=== PATIENT | male | born 1965 | race Caucasian/White ===

== ENCOUNTER 2018-11-04 19:02 | Emergency (ER) | payer SELFPAY ==
[2018-11-04 19:45] LABS: #Eosinphils 0.1 thou/uL (0.0-0.7); #Lymphocytes 1.4 thou/uL (1.20-3.40); #Monocytes 0.7 thou/uL (0.11-0.59); #Neutrophils 11.2 thou/uL (1.40-6.50); %Basophils 0.1 % (0.0-1.0); %Eosinophils 0.5 % (0.0-10.0); %Lymphocytes 10.6 % (21.0-51.0); %Neutrophils 83.9 % (42.0-75.0); Hemoglobin 11.6 g/dL (14.0-18.0); Mean Corpuscular HGB CONC 31.6 g/dL (32.0-36.0); Mean Corpuscular Hemoglobin 25.7 pg (27.0-31.0); Mean Corpuscular Volume 81.4 fL (78.0-98.0); Mean Platelet Volume 6.3 fL (7.4-10.4); Platelet Count 368 thou/uL (130-400); RBC Distribution Width 14.9 % (11.5-14.5); Red Blood Cell (RBC) Count 4.52 mill/uL (4.70-6.10); White Blood Cell (WBC) Count 13.4 thou/uL (4.8-10.8)
[2018-11-04 20:09] LABS: ALT (SGPT) Less than 7 U/L (8-55); AST (SGOT) 9 U/L (5-34); Albumin 3.4 g/dL (3.5-5.0); Alkaline Phosphatase 74 U/L (40-150); Anion Gap 13 mmol/L (10-20); BUN (Urea Nitrogen) 14 mg/dL (8.4-25.7); Bilirubin, Total 0.3 mg/dL (0.2-1.2); Calc. Creatinine Clearance 0 mL/min (70-130); Calcium 8.6 mg/dL (7.8-10.44); Carbon Dioxide 28 mmol/L (22-29); Chloride 100 mmol/L (98-107); Estimated GFR-MDRD Greater than 90; Globulin 3.7 g/dL (2.4-3.5); Glucose 105 mg/dL (70-105); Potassium 3.7 mmol/L (3.5-5.1); Protein, Total 7.1 g/dL (6.0-8.3); Sodium 137 mmol/L (136-145)
[2018-11-04 21:04] LABS: Bilirubin Small (Negative); Blood, Urine Moderate (Negative); Clarity TURBID (Clear); Glucose, Urine (Dipstick) Negative (Negative); Leukocyte Large (Negative); Nitrite Negative (Negative); Protein, Urine (Dipstick) 100 mg/dL (Neg-Trace); Specific Gravity, Urine 1.025 (1.002-1.036)
[2018-11-04 21:06] LABS: Bacteria/HPF None Seen HPF (None Seen); Hyaline Casts/LPF 7-10 HYALINE CAST LPF (0-3 Hyaline); Pathc Cast-AUWi Flag 1.77 (0-2.49); RBC/HPF 21-50 HPF (0-3); Squamous Epithelial 0-3 HPF (0-3); Yeast-AUWi Flag 24.1 (0-25.0)
--- NOTE | 2018-11-04 22:13 | ULT ---
ULTRASOUND SCROTUM TESTICLES DOPPLER DUPLEX: DATE: 11/04/2018 TIME: 9:52 p.m. HISTORY: A 53-year-old male with right testicular pain and left scrotal swelling. TECHNIQUE: Brown-scale evaluation of intrascrotal contents. Color flow Doppler and spectral waveform analysis of the testicles. FINDINGS: RIGHT TESTICLE: 2.7 x 1.7 x 2.2 cm LEFT TESTICLE: 2.8 x 1.2 x 2.4 cm Bilateral testicular echogenicity is homogeneous, with no evidence of mass. There is hyperemia (increased blood flow) symmetrically, to both testicles. There is a moderate to large right hydrocele, containing multiple septations. There is a very large simple left hydrocele. There are peristalsing bowel loops within the left hydr ocele. Right epididymal head: 1.1 x 0.8 x 1.0 cm. Left epididymal head: 0.9 x 0.5 x 0.8 cm. IMPRESSION: 1. Left inguinal-scrotal hernia, containing bowel. 2. Very large left hydrocele. 3. Moderate to large right hydrocele, containing multiple septations. 4. Hyperemia of both testicles, suggestive of bilateral orchitis. ALONA Persaud POS: DELPHINE
[2018-11-04] MEDS ORDERED: HYDROcodone/Acetaminophen 10/325 mg Tablet ONE (22:18)
[2018-11-04] MEDS ORDERED: Diazepam 5 MG TAB ONE (22:57)
[2018-11-04] MEDS ORDERED: Ketorolac Tromethamine 30 MG/ML VIAL ONE (22:57)
[2018-11-04] MEDS ORDERED: cefTRIAXone\\ROCEPHIN 1 GM VIAL ONE (23:00)
[2018-11-04] MEDS ORDERED: Lidocaine 1% PF 5 ML VIAL ONE (23:00)
== END 2018-11-05 00:42 | disposition home or self-care (01) ==
LOC: ERS 19:02
DX: N45.2 Orchitis (principal); N41.9 Inflammatory disease of prostate, unspecified; K40.90 Unilateral inguinal hernia, without obstruction or gangrene, not specified as recurrent; F17.210 Nicotine dependence, cigarettes, uncomplicated
CPT/HCPCS: 36415; 76870; 80053; 81003; 81015; 85025; 87086; 93976; 96372; J0696; J1885; J2001

== ENCOUNTER 2020-03-02 06:36 | Outpatient (CLI) | payer OTHER ==
[2020-03-02 17:32] LABS: #Eosinphils 0.2 thou/uL (0.0-0.7); #Lymphocytes 1.8 thou/uL (1.20-3.40); #Monocytes 0.6 thou/uL (0.11-0.59); #Neutrophils 8.2 thou/uL (1.40-6.50); %Basophils 0.4 % (0.0-1.0); %Lymphocytes 16.6 % (21.0-51.0); %Monocytes 5.7 % (0.0-10.0); %Neutrophils 75.3 % (42.0-75.0); Hemoglobin 13.5 g/dL (14.0-18.0); Mean Corpuscular HGB CONC 31.6 g/dL (32.0-36.0); Mean Corpuscular Hemoglobin 28.8 pg (27.0-31.0); Mean Corpuscular Volume 91.2 fL (78.0-98.0); Mean Platelet Volume 7.9 fL (7.4-10.4); Platelet Count 274 thou/uL (130-400); RBC Distribution Width 14.1 % (11.5-14.5); Red Blood Cell (RBC) Count 4.69 mill/uL (4.70-6.10); White Blood Cell (WBC) Count 10.9 thou/uL (4.8-10.8)
[2020-03-02 17:44] LABS: Anion Gap 10 mmol/L (10-20); BUN (Urea Nitrogen) 14 mg/dL (8.4-25.7); Calc. Creatinine Clearance 0 mL/min (70-130); Calcium 8.7 mg/dL (7.8-10.44); Carbon Dioxide 30 mmol/L (22-29); Chloride 101 mmol/L (98-107); Estimated GFR-MDRD Greater than 90; Glucose 71 mg/dL (70-105); Potassium 3.9 mmol/L (3.5-5.1); Sodium 137 mmol/L (136-145)
--- NOTE | 2020-03-02 20:27 | EKG ---
Test Reason : Blood Pressure : / mmHG Vent. Rate : 072 BPM Atrial Rate : 072 BPM P-R Int : 138 ms QRS Dur : 102 ms QT Int : 398 ms P-R-T Axes : 025 068 016 degrees QTc Int : 435 ms Normal sinus rhythm Normal ECG When compared with ECG of 15-OCT-2013 07:33, Vent. rate has decreased BY 39 BPM Confirmed by DANE CONNELL, DR. Winston ([id number]) on 03/02/2020 8:27:03 PM Referred By: SHOSHANA Confirmed By:DR. Tish VELA MD
[2020-03-03 10:55] LABS: SARS-CoV-2 MS2 Positive; SARS-CoV-2 N Gene Negative; SARS-CoV-2 S Gene Negative; SARS-CoV-2 orf1ab Negative
== END 2020-03-02 06:37 | disposition home or self-care (01) ==
LOC: LABBT 06:36
PROVIDERS: ATTEND Surgery
DX: Z01.818 Encounter for other preprocedural examination (principal); Z11.59 Encounter for screening for other viral diseases; K40.90 Unilateral inguinal hernia, without obstruction or gangrene, not specified as recurrent
CPT/HCPCS: 80048; 85025; 87635; 93005; 93010; U0003

== ENCOUNTER 2020-07-22 12:01 | Emergency (ER) | payer SELFPAY ==
[2020-07-22 12:54] LABS: #Lymphocytes 0.8 thou/uL (1.20-3.40); #Neutrophils 15.5 thou/uL (1.40-6.50); %Eosinophils 0.3 % (0.0-10.0); %Lymphocytes 4.3 % (21.0-51.0); %Neutrophils 89.4 % (42.0-75.0); Hemoglobin 13.6 g/dL (14.0-18.0); Mean Corpuscular HGB CONC 31.7 g/dL (32.0-36.0); Mean Corpuscular Hemoglobin 28.5 pg (27.0-31.0); Mean Corpuscular Volume 89.9 fL (78.0-98.0); Mean Platelet Volume 6.9 fL (7.4-10.4); Platelet Count 319 thou/uL (130-400); RBC Distribution Width 12.7 % (11.5-14.5); Red Blood Cell (RBC) Count 4.76 mill/uL (4.70-6.10); White Blood Cell (WBC) Count 17.4 thou/uL (4.8-10.8)
[2020-07-22 13:07] LABS: Bacteria/HPF 4+ HPF (None Seen); Bilirubin Negative (Negative); Blood, Urine 2+ (Negative); Clarity Turbid (Clear); Glucose, Urine (Dipstick) Normal (Negative); Ketone, Urine Negative (Negative); Leukocyte 500 Leu/uL (Negative); Nitrite Negative (Negative); Protein, Urine (Dipstick) 70 mg/dL (Neg-Trace); RBC/HPF 21-50 HPF (0-3); Specific Gravity, Urine 1.031 (1.002-1.036); Squamous Epithelial 0-3 HPF (0-3); Urobilinogen Greater than 12 mg/dL (Less than 2); WBC/HPF Greater than 50 HPF (0-3)
[2020-07-22 13:22] LABS: ALT (SGPT) 10 U/L (8-55); AST (SGOT) 9 U/L (5-34); Albumin 3.4 g/dL (3.5-5.0); Alkaline Phosphatase 94 U/L (40-110); Anion Gap 13 mmol/L (10-20); BUN (Urea Nitrogen) 12 mg/dL (8.4-25.7); Bilirubin, Total 0.4 mg/dL (0.2-1.2); Calc. Creatinine Clearance 0 mL/min (70-130); Calcium 8.3 mg/dL (7.8-10.44); Carbon Dioxide 28 mmol/L (22-29); Chloride 97 mmol/L (98-107); Estimated GFR-MDRD Greater than 90; Globulin 3.5 g/dL (2.4-3.5); Glucose 116 mg/dL (70-105); Lipase 9 U/L (8-78); Potassium 3.3 mmol/L (3.5-5.1); Protein, Total 6.9 g/dL (6.0-8.3); Sodium 135 mmol/L (136-145)
[2020-07-22] MEDS ORDERED: cefTRIAXone\\ROCEPHIN 1 GM VIAL ONE (15:05)
[2020-07-22] MEDS ORDERED: Acetaminophen 500 MG TAB ONE (15:33)
== END 2020-07-22 15:33 | disposition home or self-care (01) ==
LOC: ERS 12:01
DX: N30.90 Cystitis, unspecified without hematuria (principal); I10 Essential (primary) hypertension; F17.210 Nicotine dependence, cigarettes, uncomplicated
CPT/HCPCS: 36415; 80053; 81003; 81015; 83605; 83690; 85025; 87040; 87149; 96361; 96365; J0696

== ENCOUNTER 2020-07-27 13:41 | Inpatient (IN) | payer OTHER, SELFPAY ==
[~2020-07-27 13:41] MED LIST: Heparin 1,000 UNITS/ML VIAL ONE; Iopamidol-370 76% 500 ML 1 ML ONE
[2020-07-27 14:10] LABS: #Basophils 0.1 thou/uL (0.0-0.2); #Eosinphils 0.1 thou/uL (0.0-0.7); #Lymphocytes 1.6 thou/uL (1.20-3.40); #Monocytes 0.5 thou/uL (0.11-0.59); #Neutrophils 8.7 thou/uL (1.40-6.50); %Basophils 0.5 % (0.0-1.0); %Eosinophils 1.1 % (0.0-10.0); %Lymphocytes 14.6 % (21.0-51.0); %Monocytes 4.5 % (0.0-10.0); %Neutrophils 79.2 % (42.0-75.0); Hemoglobin 13.1 g/dL (14.0-18.0); Mean Corpuscular HGB CONC 32.6 g/dL (32.0-36.0); Mean Corpuscular Hemoglobin 28.8 pg (27.0-31.0); Mean Corpuscular Volume 88.3 fL (78.0-98.0); Mean Platelet Volume 6.8 fL (7.4-10.4); Platelet Count 404 thou/uL (130-400); RBC Distribution Width 12.8 % (11.5-14.5); Red Blood Cell (RBC) Count 4.55 mill/uL (4.70-6.10); White Blood Cell (WBC) Count 10.9 thou/uL (4.8-10.8)
[2020-07-27] MEDS ORDERED: Vancomycin 1 GM/200 ML BAG ONE (14:12)
[2020-07-27] MEDS ORDERED: cefTRIAXone\\ROCEPHIN 2 GM VIAL ONE (14:12)
[2020-07-27 14:34] LABS: ALT (SGPT) 9 U/L (8-55); AST (SGOT) 14 U/L (5-34); Albumin 3.3 g/dL (3.5-5.0); Alkaline Phosphatase 80 U/L (40-110); Anion Gap 11 mmol/L (10-20); BUN (Urea Nitrogen) 13 mg/dL (8.4-25.7); Bilirubin, Total 0.2 mg/dL (0.2-1.2); CK (CPK) 29 U/L (30-200); Calc. Creatinine Clearance 0 mL/min (70-130); Calcium 8.4 mg/dL (7.8-10.44); Carbon Dioxide 30 mmol/L (22-29); Chloride 99 mmol/L (98-107); Estimated GFR-MDRD Greater than 90; Globulin 3.6 g/dL (2.4-3.5); Glucose 114 mg/dL (70-105); Lipase 19 U/L (8-78); Potassium 3.7 mmol/L (3.5-5.1); Protein, Total 6.9 g/dL (6.0-8.3); Sodium 136 mmol/L (136-145)
--- NOTE | 2020-07-27 14:49 | RAD ---
XR Chest 1 View Portable HISTORY: Fever COMPARISON: 10/15/2013 FINDINGS: The heart size is normal. The lungs are well expanded without focal areas of consolidation, pneumothorax or pleural effusions. IMPRESSION: No radiographic evidence of acute cardiopulmonary process.
[2020-07-27 15:13] LABS: Bilirubin Negative (Negative); Blood, Urine Large (Negative); Glucose, Urine (Dipstick) Negative (Negative); Ketone, Urine Trace mg/dL (Negative); Leukocyte Moderate (Negative); Nitrite Negative (Negative); Protein, Urine (Dipstick) 100 mg/dL (Neg-Trace); Specific Gravity, Urine 1.025 (1.005-1.030); pH, Urine 6.5 (5.0-9.0)
[2020-07-27 15:14] LABS: Clarity Opaque (Clear)
[2020-07-27 15:22] LABS: Bacteria/HPF 3+ HPF (None Seen); RBC/HPF 21-50 HPF (0-3); Squamous Epithelial 0-3 HPF (0-3); WBC/HPF Greater Than 50 HPF (0-3)
--- NOTE | 2020-07-27 15:38 | CT ---
CT Stone Protocol 07/27/2020 2:55 PM HISTORY: Urinary tract infection diagnosed one week ago. Symptoms not relieved by medication. Abdominal pain. COMPARISON: None. Technique: Multiple contiguous axial CT images are obtained through the abdomen and pelvis without IV contrast. Coronal reformats are provided. FINDINGS: This examination is limited for the evaluation of solid organs and vascular structures due to the lac k of intravenous contrast. Lower Chest: Reticulonodular densities and bronchiectasis is seen at each lung base with calcified pl eural-based plaque along the right hemidiaphragm. Calcified granuloma seen at the right lung base. These findings were also seen on a CT angiogram of the thorax on 10/15/2013 suggesting chronic inflam matory or infectious process. Liver: Grossly normal non-enhanced CT appearance. Gallbladder: Decompressed. Pancreas: Grossly normal nonenhanced CT appearance. Spleen: Grossly normal nonenhanced CT appearance. Adrenals: Grossly normal nonenhanced CT appearance. Kidneys, ureters, urinary bladder: A nonobstructing 2 mm calculus is seen in the midportion left kidn ey. No right renal calculus or ureteral calculi are seen bilaterally. There is no hydronephrosis. Urinary bladder is incompletely distended but grossly within normal limits. Lymph Nodes: No enlarged lymph nodes. Bowel: There is a focal area of circumferential wall thickening involving the most proximal rectum ne ar the rectosigmoid junction worrisome for neoplastic process. There is an irregular fluid and gas collection seen in the lower pelvis which appears to involve the prostate gland and also abuts the ri ght lateral aspect of the rectum. This collection measures approximately 5.1 cm transverse x 4.6 cm AP x 4.8 cm craniocaudal. This appears to involve the lower one half of the prostate gland and could represent an abscess involving the prostate gland. As noted above, this does abut the right lateral wall of the rectum. Fluid and gas collection arising from the colon is a possibility. However, given that this collection appears to involve the prostate gland, this is thought to more likely arise from the prostate gland and related to abscess. Appendix: The appendix is normal in caliber. Vessels: Vascular calcifications in the abdominal aorta and iliac arteries.. Abdominal Wall: Minimal subcutaneous edema. Bones: Multilevel degenerative changes in the lumbar spine with trace grade 1 anterolisthesis of L4 o n L5. IMPRESSION: 1. Circumferential wall thickening involving the proximal rectum worrisome for neoplastic process. Co lonoscopy is recommended for further evaluation. 2. Fluid and gas collection in the lower pelvis which involves the posterior aspect of the prostate g land and extends along the right aspect of the lower rectum. Findings are most likely related to abscess involving the prostate gland which extends posterolaterally on the right and abuts the rectum laterally on the right. Fluid and gas collection arising from the rectum with extension into the prostate gland is a possibility but is thought less likely colonoscopy is again recommended for furth er evaluation. Urology consultation is also suggested. 3. Reticulonodular densities and bronchiectasis at each lung base which were also seen on a CTA thora x in 2013 and likely related to chronic infectious or inflammatory process. 4. Nonobstructing left renal calculus. There is no hydronephrosis, and no ureteral calculus is seen. 5. Above findings discussed Dr. Phan in the emergency department on 07/27/2020 at 1531 hours.
--- NOTE | 2020-07-27 17:24 | CT ---
CT ABDOMEN WITH CONTRAST CT PELVIS WITH CONTRAST: DATE: 07/27/2020 HISTORY: 54-year-old male with urinary tract infection and prostate infection COMPARISON: None TECHNIQUE: IV injection of iodinated contrast media: administered. Oral contrast media:Not administered FINDINGS: There is an approximately 5.5 x 3 x 6 cm collection of gas and fluid within the prostate gland, with air-fluid level, consistent with abscess. This is associated with enlargement of the prostate which superiorly displaces the base of the urinary bladder. There is collection is inseparable from the right side of the rectum by a continuation of the fluid c ollection. Within this connection, there is an approximately 3 x 2.5 x 4.5 cm enhancing tumor mass which appears to be external to the rectum, but broadly abuts the right side of the rectum. More inferiorly, the lower rectum and anorectal junction appears diffusely thickened. More superiorly , there is circumferential mural thickening of the upper-mid rectum, suspicious for rectal cancer. There is fat stranding representing edema throughout the pelvic cavity, especially in the dependent l ower portions, and ischio rectal fossa bilaterally. Moderate to large volume of colonic stool throughout the rest of the colon. No small bowel dilation. There is somewhat poor IV contrast enhancement of all of the organs. No major pathology of kidneys, adrenals, abdominal aorta, pancreas, spleen. No flat broad coarse calcification at the right hemidiaphragmatic surface, consistent with calcified pleural plaque. Edema throughout the subcutaneous fat. Nonspecific tree-in-bud patchy nodularity at bases of bilateral lower lobes. High-grade lumbar spondy losis with multilevel degenerative disc disease and facet DJD. Grade 1 spondylolisthesis without spondylolysis at L4-5.. There is an approximately 2 cm faint ill-defined low-attenuation lesion in hepatic segment IVb of the left lobe near the junction with the right lobe, suspicious for a metastasis. IMPRESSION: 1) large intra prostate abscess. 2) this abscess communicates with 3 x 2.5 x 4.5 cm mass between the right side of the rectum and the right posterior aspect of the prostate abscess. This mass may represent a malignant neoplastic tumor. 3) more superiorly in the rectum, there is circumferential mural thickening suspicious for rectal can cer. 4) at the anorectal junction, there is diffuse soft tissue thickening. 5) suspicious for 2 cm liver metastasis in left lobe of liver.
[2020-07-27 17:49] VITALS: BMI 29.2
[2020-07-27] MEDS ORDERED: HYDROcodone/Acetaminophen 7.5/325 mg Tablet PO PRN (17:54)
[2020-07-27] MEDS ORDERED: Acetaminophen 325 MG TAB PO PRN (18:25)
[2020-07-27] MEDS ORDERED: Senokot S 8.6-50 MG TAB PO PRN (18:25)
[2020-07-27] MEDS ORDERED: Acetaminophen 650 MG Suppository PR PRN (18:25)
[2020-07-27] MEDS: Sodium Chloride 0.9% 1,000 ML IV SCH (18:25)
[2020-07-27 18:32] LABS: INR-International Normal Ratio 1.1; PTT 32.6 sec (22.9-36.1); Prothrombin Time 14.4 sec (12.0-14.7)
--- NOTE | 2020-07-27 19:02 | PDOC.HHP ---
Hospitalist HPI - History of Present Illness History of Present Illness: DATE OF ADMISSION: 07/27/2020 TIME OF ASSESSMENT: 1745 PRIMARY CARE PHYSICIAN: None CHIEF COMPLAINT: Episode of blood-tinged urine HPI: Patient presented to the emergency department with complaints of a recent UTI for which he received a 9-day course of antibiotics with nitrofurantoin. He states he had 1 day of dysuria and felt that improvement in discomfort meant the antibiotics were working up until today when he noted blood-tinged urine while he was at work. Denies having any associated discomfort. He was alarmed and therefore decided to come into the ER. Denies experiencing any abdominal or suprapubic discomfort. No changes in urinary output, frequency or hesitancy. Has not had any fevers chills or sweats. Denies any urinary difficulties or symptoms in the past. ROS: Patient states his appetite has been very good and he denies experiencing any nausea or vomiting. He has not noted any drastic changes with his weight. States that his bowel movements have been loose but denies any pain with bowel movements. Has not noted any dark-colored stools or bright red blood per rectum. He felt the loose stools was associated with the recent antibiotics. Denies any chest pain palpitations or shortness of breath. Reports a chronic dry cough associated with his heavy history of smoking. All other review of systems are negative. ED COURSE: In the ER he had an EKG done that showed sinus tachycardia with a heart rate of 144. No ST changes or T wave abnormalities. Blood pressure was normal at 127/78. Urinalysis was done showing opaque appearing urine with 100 of protein, trace ketones, large blood, 2.0 urobilinogen, moderate leukocyte esterase, 21-50 red blood cells, greater than 50 white blood cells, 3+ bacteria. He had a chest x-ray done that showed no radiographic evidence of acute cardiopulmonary process. Heart size was normal. Labs notable for a white count of 10.9, hemoglobin 13.1, hematocrit 40.2, platelet count 404, neutrophils 79.2%. BUN 13, creatinine 0.76, GFR greater than 90. Glucose 114. Lactic acid 2. LFTs unremarkable. Lipase normal. Troponin negative. CK 29. Albumin 3.3. CT of the abdomen and pelvis was done for suspected prostate infection and revealed a large intra-prostate abscess communicating with a 3 x 2.5 x 4.5 cm mass between the right side of the rectum and the right posterior aspect of the prostate abscess. This was felt to represent a malignant neoplastic tumor. Superiorly in the rectum there was a circumferential mural thickening suspicious for rectal cancer. Diffuse soft tissue thickening at the anorectal junction noted. Also present was a 2 cm liver lesion suspicious for metastasis located in the left lobe of the liver. He was started on IV antibiotics with vancomycin as well as Rocephin. He was started on IV fluids with normal saline. His case was reportedly discussed with urology as well as who is on- call for surgery. Case also discussed with GI. Patient being admitted for further work-up. PAST MEDICAL HISTORY: Tobacco abuse PAST SURGICAL HISTORY: Inguinal hernia repair Tonsillectomy SOCIAL HISTORY: Patient is fully independent. He lives with his . Reports smoking 2 packs a day for most of his life, per patient. Previously smoked 1- 1/2 packs/day but has been smoking 2 packs/day for the last 17 years. Denies any alcohol consumption or drug use. FAMILY HISTORY: His father is , diagnosed with brain cancer. ALLERGIES: No known drug allergies. CURRENT MEDICATIONS: Recently on nitrofurantoin 100 mg p.o. twice daily. - Exam General Appearance: NAD, awake alert General - other findings: VS: Temp 98.5, HR 76, RR 14, O2 sat 98% on room air, BP 155/83. Eye: PERRL, anicteric sclera ENT: normocephalic atraumatic Neck: supple, no lymphadenopathy Heart: RRR, normal peripheral pulses Respiratory: no wheezes, normal chest expansion, no tachypnea Respiratory - other findings: Coarse lung sounds, no crackles or wheezing Gastrointestinal: soft, non-tender, non-distended, no palpable masses, no guarding, no rigidity Extremities: no edema Skin: normal turgor, no lesions, no rashes Neurological: cranial nerve grossly intact, normal sensation to touch, no focal deficits Musculoskeletal: normal tone, normal strength, no muscle wasting Psychiatric: normal affect, normal behavior, A&O x 3 Hospitalist Results - Labs Result Diagrams: 07/27/20 13:57 07/27/20 13:57 Lab results: WBC 10.9 thou/uL (4.8-10.8) H 07/27/20 13:57 Hgb 13.1 g/dL (14.0-18.0) L 07/27/20 13:57 Hct 40.2 % (42.0-52.0) L 07/27/20 13:57 MCV 88.3 fL (78.0-98.0) 07/27/20 13:57 Plt Count 404 thou/uL (130-400) H 07/27/20 13:57 Neutrophils % 79.2 % (42.0-75.0) H 07/27/20 13:57 Sodium 136 mmol/L (136-145) 07/27/20 13:57 Potassium 3.7 mmol/L (3.5-5.1) 07/27/20 13:57 Chloride 99 mmol/L (98-107) 07/27/20 13:57 Carbon Dioxide 30 mmol/L (22-29) H 07/27/20 13:57 BUN 13 mg/dL (8.4-25.7) 07/27/20 13:57 Creatinine 0.76 mg/dL (0.7-1.3) 07/27/20 13:57 Glucose 114 mg/dL (70-105) H 07/27/20 13:57 Lactic Acid 2.0 mmol/L (0.5-2.2) 07/27/20 14:28 Calcium 8.4 mg/dL (7.8-10.44) 07/27/20 13:57 Total Bilirubin 0.2 mg/dL (0.2-1.2) 07/27/20 13:57 AST 14 U/L (5-34) 07/27/20 13:57 ALT 9 U/L (8-55) 07/27/20 13:57 Alkaline Phosphatase 80 U/L (40-110) 07/27/20 13:57 Creatine Kinase 29 U/L (30-200) L 07/27/20 13:57 Troponin I Less than 0.010 ng/mL (< 0.028) 07/27/20 13:57 Serum Total Protein 6.9 g/dL (6.0-8.3) 07/27/20 13:57 Albumin 3.3 g/dL (3.5-5.0) L 07/27/20 13:57 Lipase 19 U/L (8-78) 07/27/20 13:57 Urine Ketones Trace mg/dL (Negative) A 07/27/20 14:50 Urine Blood Large (Negative) A 07/27/20 14:50 Urine Nitrite Negative (Negative) 07/27/20 14:50 Ur Leukocyte Esterase Moderate (Negative) H 07/27/20 14:50 Urine RBC 21-50 HPF (0-3) A 07/27/20 14:50 Urine WBC Greater Than 50 HPF (0-3) A 07/27/20 14:50 Ur Squamous Epith Cells 0-3 HPF (0-3) 07/27/20 14:50 Urine Bacteria 3+ HPF (None Seen) A 07/27/20 14:50 Hospitalist H&P A/P - Problem (1) Hematuria Code(s): R31.9 - HEMATURIA, UNSPECIFIED Status: Acute Assessment and Plan: Has resolved per patient. Continue to monitor closely for development of anisha hematuria. (2) Abscess of prostate Code(s): N41.2 - ABSCESS OF PROSTATE Status: Acute Assessment and Plan: Continue IV antibiotics. Urology recommendations appreciated. UCx pending. Continue IV fluids. (3) Mass in rectum Code(s): K62.89 - OTHER SPECIFIED DISEASES OF ANUS AND RECTUM Status: Acute Assessment and Plan: Possible rectal cancer as well as possible liver mets as per CT findings. GI has been consulted. Will check CEA and PSA. Coags added-on for the AM. Keep NPO after midnight. Continue IV fluids. Check BNP in the AM. (4) Tobacco abuse disorder Code(s): Z72.0 - TOBACCO USE Status: Chronic Assessment and Plan: Long-standing heavy smoking history. Tobacco cessation counseling. Patient refusing nicotine patch at present. Coarse lung sounds on exam but no known diagnosis of COPD. Monitor O2 sats. Would benefit from PFTs, especially if undergoing any major procedures. - Plan Plan: GI Prophylaxis with Famotidine 20 mg PO BID. DVT Prophylaxis: Mechanical SCDs only. No pharmacoprophylaxis given recent hematuria and posisble procedures. Patient is ambulatory. FULL CODE STATUS. Surrogate decision maker is his : Lakesha Dixon. Case discussed with Dr. Hutchins who agrees with plan as above.
[2020-07-27 19:23] LABS: HIV (1/2) Antibody/Antigen Non-Reactive (NonReactive); HIV 1/2 INDEX 0.11 S/CO (<1.00); Hep A IgM AB Non-Reactive (NonReactive); Hep A IgM S/CO 0.42 S/CO (0-0.79); Hep B Surf Ag Non-Reactive S/CO (NonReactive); Hep C IgG Ab Non-Reactive (NonReactive); Hep C Index 0.08 S/CO (0-0.79); Hepatitis B Core IgM Abs Non-Reactive (NonReactive)
[2020-07-27] MEDS: Famotidine 20 MG TAB PO SCH (20:20)
[2020-07-27] MEDS: Vancomycin HCl 1.75 GM in Sodium Chloride 0.9% 500 ML IVPB SCH (20:30)
[2020-07-27] MEDS ORDERED: Vancomycin 1 GM in Premix Bag 1 BAG IVPB SCH (21:00)
[2020-07-27] MEDS ORDERED: metroNIDAZOLE 250 MG in Admixture Fee 2 EACH IVPB SCH (22:00)
[2020-07-27] MEDS ORDERED: metroNIDAZOLE 500 MG in Premix Bag 1 BAG IVPB SCH (22:00)
[2020-07-27] MEDS: Piperacillin/Tazobactam 3.375 GM in Sodium Chloride 0.9% 100 ML IVPB SCH (23:43)
--- NOTE | 2020-07-28 00:01 | CON ---
DATE OF CONSULTATION: 07/27/2020 REASON FOR CONSULT: Perirectal prostate abscess, rectal mass concerning for rectal carcinoma. HISTORY OF PRESENT ILLNESS: Mr. aSnchez is a pleasant 54-year-old male, who has a history of inguinal hernia, status post repair by Dr. Nevarez in February of 2020. He tolerated this uneventfully. He has been trying to lose weight for the last few years and has lost over 200 pounds over the last year too with an active diet. He presented to the emergency room on July 22, he presented with symptoms of UTI, low-grade fever and provided Macrobid as an outpatient. He was given Rocephin in the emergency room. He states that due to persistent dysuria, he presented to the emergency room back. CT was obtained by the emergency room staff, demonstrating abnormality of the rectal region, perirectal abscess, and prostatic abscess. He has no significant white count or bandemia of concern. Normal renal function and his vital signs are stable. He appears quite comfortable. However, he is admitted as he has presenting issues of concern with occult malignancy, perirectal prostatic abscess. He has a strong history of tobacco abuse since his late teens and early 20s, has a significant other at bedside. 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 He denies prior history of urinary retention. He states that he may have had vague prostatitis symptoms maybe a year or 2 ago, resolved with antibiotic therapy. He denies obstructive urinary symptoms, however, relates that occasional passage of pustular fluid per his urethra over the last few days and feels that his urinary flow was adequate and has mild dysuria. PAST MEDICAL HISTORY: Includes hepatitis A as a child, left inguinal hernia, hypertension. PAST SURGICAL HISTORY: Includes tonsillectomy as a child, left inguinal hernia repair with mesh on March 05, 2020. FAMILY HISTORY: Positive for unknown malignancy per patient. HOME MEDICATIONS: Include tramadol and Macrobid, which he has one dose left. SOCIAL HISTORY: He is a smoker, 1 pack per day since his late teens or early 20s. ALLERGIES: NO KNOWN DRUG ALLERGIES. HIS RECENT COVID TESTING FROM INGUINAL HERNIA REPAIR IS NEGATIVE AND HE DENIES CHEST PAIN, SHORTNESS OF BREATH, SIGNIFICANT FATIGUE. REVIEW OF SYSTEMS: A 10-point review of systems as above, otherwise noncontributory. PHYSICAL EXAMINATION: VITAL SIGNS: Stable. He is afebrile and there is no evidence of hemodynamic compromise or no significant tachycardia of concern. GENERAL: The patient appears to be in no acute distress. He provides his own history. Significant other at bedside. HEENT: Grossly unremarkable. HEART: Regular rate. LUNGS: Clear. ABDOMEN: Demonstrates no rigidity, no rebound, no CVA tenderness. No suprapubic tenderness of concern. EXTREMITIES: No cyanosis, clubbing, or edema. No calf tenderness. MUSCULOSKELETAL: Appears to be symmetric and intact muscle strength. NEUROLOGIC: No gross focal deficits. SKIN: No obvious rashes or lesion of concern. : Demonstrates circumcised phallus. Meatus is grossly unremarkable. Testes are descended with no evidence of intratesticular mass. There is a left inguinal hernia incision consistent with previous surgery. Perineum is inspected demonstrating no gross fluctuance, erythema or crepitus of concern. Gentle digital rectal exam was performed demonstrating no significant fluctuance per se. However, there is gross irregularity, hardness in his rectal vault consistent with occult malignancy. I did gently pass a 16-Kenyan Ortiz catheter, this passed without significant issues and clear yellow urine is obtained without significant issues of 120 mL of urine obtained and this was secured to gravity leg bag. PERTINENT LABS AND IMAGING: White count 10, hemoglobin 13, platelets 404. Creatinine 0.7. Lactic acid is normal. UA on arrival demonstrates 100 protein, moderate leukocytes, greater than 50 wbc's, 21 to 50 rbc's, no epithelials, 3+ bacteria. COVID-19 is negative on March 02, 2020. Creatinine 0.76. Liver enzymes are grossly unremarkable, however, he does have a mildly low albumin of 3.3. White count 10.9, hemoglobin of 13, platelets of 404, 93 segs. No significant bandemia noted. Blood culture, July 22, demonstrates coag-negative staph, 1/2 blood cultures positive. On November 04, 2018, urine culture is negative, mixed skin honorio. Urine culture, October 25, 2018, demonstrates Streptococcus 10 to 25,000. Scrotal ultrasound on October 2018 demonstrates left inguinal scrotal hernia containing bowel content, possible orchitis as there is hyperemia. CT of the abdomen and pelvis stone protocol dated July 27, 2020, which I reviewed myself. 1. Circumferential wall thickening involving the proximal rectum, worrisome for malignancy. 2. Fluid and gas collection in the lower pelvis involving the posterior aspect of the prostate extending into the right aspect of the lower rectum and likely related to abscess involving the prostate extending posterolaterally to the right and abutting the rectum laterally. Fluid and gas collection arising from the rectum with extension into the prostate gland is also a possibility. Bronchiectasis of the lung. Nonobstructing left punctate renal lithiasis with no evidence of hydronephrosis bilaterally. CT of the abdomen and pelvis with IV contrast obtained on same day demonstrates 5.5 x 3 x 6 cm gas and fluid collection within the prostate, consistent with abscess. There is a collection of inseparable fluid on the right side of the rectum by continuation of fluid collection. Within this connection, a 3 x 2.5 x 4.5 cm enhancing tumor mass appears to be external to the rectum abutting the right side of the rectum. Diffusely thickened anorectal junction suspicious for rectal cancer. Suspicious 2 cm liver metastasis, left lower lobe. IMPRESSION: 1. Mr. Sanchez is a pleasant 54-year-old male, who presents with CT findings of rectal mass, prostatic abscess, perirectal abscess dimensions as above. 2. Nonobstructing punctate left renal lithiasis. RECOMMENDATIONS: I have discussed Mr. Sanchez's case with General Surgery, Dr. Peres, and his primary general surgeon, Dr. Nevarez. He remains hemodynamically stable and this is likely the result of rectal cancer resulting in abscess, or concomitant prostate infection and prostatic abscess. Possibility of both entities being present is also differential diagnosis, or necrotic mass resulting in prostatic abscess. Nevertheless, the patient is not in significant urinary retention, I had a long discussion with the patient at bedside regarding indications of exam under anesthesia, cystoscopy, transurethral unroofing of prostatic abscess, possible needle aspiration if conducive, suprapubic tube for urinary diversion. Digital rectal exam demonstrates infiltrating rectal mass concerning for rectal carcinoma on CT demonstrating metastatic disease. The patient is n.p.o. after midnight, the above procedure scheduled for tomorrow with concomitant GI assessment while under anesthesia for flex sig. Case discussed with Dr. Boateng as well. Significant time spent with the patient and coordinating care with multiple subspecialists. N.p.o. after midnight. Job ID: [id number] [facility]
--- NOTE | 2020-07-28 00:13 | CON ---
DATE OF CONSULTATION: 07/27/2020 REQUESTING PHYSICIAN: Dr. Peres. REASON FOR CONSULTATION: Rectal mass on CT. HISTORY OF PRESENT ILLNESS: Long Sanchez is a 54-year-old man, who normally takes no medications. He has a history of prostatitis, treated with extended oral antibiotic therapy a couple of years ago per his recollection, which had resolved completely. He has never undergone colonoscopy and has no family history of GI malignancy. About a week ago, he presented with pyuria and was diagnosed with urinary tract infection. He has been taking nitrofurantoin for the past six days. However, he has not had any improvement in his symptoms, the appearance of pyuria, some mild dysuria and then today had some anisha blood in his urine as well. He denies any fever. He is really not having any abdominal pain with this. He does say that his bowel movements may be a bit smaller caliber than before progressively over the past few months, but he really did not think much of this. There is no melena or hematochezia. His weight has been stable over the past year, but upon presentation to the emergency department today, urinalysis again was highly suggestive of urinary infection and a CT of the abdomen and pelvis demonstrates what appears to be a prostatic abscess measuring 5.1 cm, abutting the right lateral rectum and there is also circumferential thickening of the proximal rectum near the rectosigmoid junction, which is worrisome for possible neoplasm. The patient currently has no other complaints. He does smoke two packs of cigarettes per day. Dr. Washington of Urology has evaluated the patient and is planning on urologic procedure for abscess drainage tomorrow. We are consulted for consideration of endoscopic examination of the rectal mass, potentially under the same anesthesia. REVIEW OF SYSTEMS: Full review of systems including constitutional, head, eyes, ears, nose, throat, GI, , cardiovascular, respiratory, musculoskeletal, neurologic systems is negative except as noted in the HPI. PAST MEDICAL HISTORY: 1. Prostatitis, treated with antibiotics a few years ago. 2. Hernia repair. 3. Tobacco abuse. ALLERGIES: NO KNOWN DRUG ALLERGIES. OUTPATIENT MEDICATIONS: Nitrofurantoin p.o. for the past 6 days. SOCIAL HISTORY: The patient smokes two packs of cigarettes per day. He quit drinking alcohol about 14 years ago. No drug use. FAMILY HISTORY: Negative for GI malignancy. PHYSICAL EXAMINATION: VITAL SIGNS: Temperature 98.5, pulse 76, blood pressure 155/83, oxygen saturation 98% on room air. GENERAL: A 54-year-old man, lying in bed comfortably, in no distress. SKIN: No jaundice. No rashes were palpable. EYES: No scleral icterus. Extraocular movements intact ENT: Mucous membranes moist. No oral lesions. LYMPH: No submandibular or supraclavicular lymphadenopathy. THYROID: Nontender to palpation. HEART: Regular rate and rhythm. LUNGS: Clear to auscultation bilaterally. ABDOMEN: Bowel sounds present. Soft and nontender to palpation throughout. EXTREMITIES: No peripheral edema. VESSELS: Radial pulses 2+ bilaterally. NEUROLOGICAL: Cranial nerves 2 through 12 intact bilaterally. No focal deficits. RECTAL: Deferred this evening. LABORATORY STUDIES: WBC 10.9, hemoglobin 13.1, platelets 404. Sodium 136, potassium 3.7, BUN 13, creatinine 0.76. LFTs all normal with total bilirubin 0.2, alkaline phosphatase 80, AST 14, ALT 9, albumin 3.3. Lactic acid only 2.0. Troponin negative. Lipase 19. CK 29. Urinalysis shows greater than 50 WBCs, 21-50 RBCs, 3+ bacteria. Urine culture is pending. Blood culture pending. COVID PCR pending. Hepatitis acute panel and HIV, CEA, PSA and INR also pending. IMAGING STUDIES: CT of the abdomen and pelvis demonstrates circumferential thickening in the proximal rectum worrisome for neoplastic process. There is a prostatic abscess measuring 5.1 cm, abutting the right lateral rectum. Chest x-ray shows no acute processes. ASSESSMENT/PLAN: 1. Rectal mass, highly suspected based on CT appearance showing circumferential proximal rectal thickening. 2. Prostatic abscess. I had a long discussion with the patient regarding the CT findings. This rectal thickening on CT is worrisome for potential neoplastic process. If present, it may be an underlying cause of this recurrent prostatitis with abscess. Alternatively, I suppose this could represent local inflammatory process from the prostatic abscess itself rather than neoplasm. Endoscopic investigation is certainly warranted. I have discussed the case with Dr. Washington. She has requested that we not administer bowel perforation for full colonoscopy, as this would be more likely to interfere with what she needs to do tomorrow. So, we are going to plan for unprepped flexible sigmoidoscopy tomorrow under the same anesthesia, we will likely be able to get a good enough examination of the area in question. The patient would then need a full colonoscopy at some point in the future, depending on findings. The patient understands and agrees with the plan. Thank you for the consultation. Please call anytime with questions or concerns. Job ID: [id number]
[2020-07-28 05:51] LABS: PTT 32.6 sec (22.9-36.1); Prothrombin Time 13.9 sec (12.0-14.7)
[2020-07-28] MEDS: Piperacillin/Tazobactam 3.375 GM in Sodium Chloride 0.9% 100 ML IVPB SCH ×4 (05:53→23:39)
[2020-07-28] MEDS: Sodium Chloride 0.9% 1,000 ML IV SCH ×3 (05:53→18:50)
[2020-07-28 05:54] LABS: #Eosinphils 0.2 thou/uL (0.0-0.7); #Lymphocytes 1.1 thou/uL (1.20-3.40); #Monocytes 0.6 thou/uL (0.11-0.59); #Neutrophils 10.1 thou/uL (1.40-6.50); %Basophils 0.2 % (0.0-1.0); %Eosinophils 1.4 % (0.0-10.0); %Monocytes 5.4 % (0.0-10.0); %Neutrophils 84.1 % (42.0-75.0); Hemoglobin 11.6 g/dL (14.0-18.0); Mean Corpuscular HGB CONC 32.2 g/dL (32.0-36.0); Mean Corpuscular Hemoglobin 28.7 pg (27.0-31.0); Mean Corpuscular Volume 88.9 fL (78.0-98.0); Mean Platelet Volume 7.2 fL (7.4-10.4); Platelet Count 319 thou/uL (130-400); Red Blood Cell (RBC) Count 4.04 mill/uL (4.70-6.10)
[2020-07-28 06:03] LABS: Anion Gap 10 mmol/L (10-20); BUN (Urea Nitrogen) 9 mg/dL (8.4-25.7); Calc. Creatinine Clearance 159 mL/min (70-130); Calcium 7.7 mg/dL (7.8-10.44); Carbon Dioxide 27 mmol/L (22-29); Chloride 104 mmol/L (98-107); Estimated GFR-MDRD Greater than 90; Glucose 92 mg/dL (70-105); Potassium 4.4 mmol/L (3.5-5.1); Sodium 137 mmol/L (136-145)
[2020-07-28] MEDS: Vancomycin HCl 1.75 GM in Sodium Chloride 0.9% 500 ML IVPB SCH (08:35)
[2020-07-28] MEDS: Famotidine 20 MG TAB PO SCH ×2 (08:35→20:20)
[2020-07-28] MEDS ORDERED: Iopamidol 370 76% 100 ML VIAL ONE (08:49)
[2020-07-28] MEDS ORDERED: Iopamidol 370 76% 50 ML VIAL FS ONE (08:49)
[2020-07-28] MEDS ORDERED: Rocuronium Bromide 10 MG/ML (10ML VIAL) ONE (09:26)
[2020-07-28] MEDS ORDERED: PROPOFOL 200 MG/20 ML VIAL ONE (09:26)
[2020-07-28] MEDS ORDERED: Lidocaine 1% PF 5 ML VIAL ONE (09:26)
[2020-07-28] MEDS ORDERED: Glycopyrrolate 0.2 MG/ML 5 ML SYRINGE ONE (09:26)
[2020-07-28] MEDS ORDERED: Ondansetron PF 4 MG/2 ML Vial ONE (09:26)
[2020-07-28] MEDS ORDERED: Dexamethasone 20 MG/5 ML VIAL ONE (09:26)
[2020-07-28] MEDS ORDERED: Piperacillin/Tazobactam 3.375 GM VIAL ONE (10:21)
[2020-07-28] MEDS ORDERED: Sodium Chloride 0.9% 100 ML ONE (10:21)
[2020-07-28] MEDS ORDERED: Midazolam HCl 2 mg/2 ml Vial ONE (10:22)
[2020-07-28] MEDS ORDERED: Fentanyl 100 MCG/2 ML VIAL ONE ×2 (10:22→12:47)
[2020-07-28 11:59] LABS: SARS-CoV-2 MS2 Positive; SARS-CoV-2 N Gene Negative; SARS-CoV-2 S Gene Negative; SARS-CoV-2 by NAA Not Detected (NotDetected); SARS-CoV-2 orf1ab Negative
--- NOTE | 2020-07-28 13:05 | PDOC.HOSPP ---
- Subjective Encounter Date: 07/28/20 Encounter Time: 08:20 Subjective: no sob or palp at bedside no nausea or abd pain - Objective Vital Signs & Weight: Vital Signs (12 hours) Temp Pulse Resp BP Pulse Ox 07/28/20 08:00 98.5 F 74 15 158/79 H 98 07/28/20 07:19 98.5 F 74 20 158/79 H 98 07/28/20 04:00 98.6 F 78 18 155/84 H 97 Weight Weight 197 lb 15.954 oz I&O: 07/27/20 07/28/20 07/29/20 06:59 06:59 06:59 Intake Total 600 Output Total 1900 Balance -1300 Result Diagrams: 07/28/20 05:06 07/28/20 05:06 Hospitalist ROS - Medication Medications: Active Medications Generic Name Dose Route Start Last Admin Trade Name Freq PRN Reason Stop Dose Admin Famotidine 20 mg 07/27/20 21:00 07/28/20 08:35 Famotidine 20 Mg Tab PO Not Given BID KEVEN Sodium Chloride 1,000 mls @ 125 mls/hr 07/27/20 18:00 07/28/20 09:11 Normal Saline 0.9% IV Not Given .Q8H KEVEN Vancomycin HCl 1.75 gm/ Sodium 500 mls @ 250 mls/hr 07/27/20 21:00 07/28/20 08:35 Chloride IVPB 500 mls Q12HR KEVEN Administration Piperacillin Sod/Tazobactam 100 mls @ 200 mls/hr 07/27/20 23:59 07/28/20 05 :53 Sod 3.375 gm/ Sodium Chloride IVPB 100 mls Q6HR KEVEN Administration - Exam General Appearance: awake alert Eye: PERRL, anicteric sclera ENT: no oropharyngeal lesions, dry oral mucosa Neck: supple, no JVD Heart: RRR, no murmur, no gallops Respiratory: no wheezes, no rales, rhonchi Gastrointestinal: soft, non-tender, non-distended, normal bowel sounds, no guarding, no rigidity Extremities: no cyanosis, no edema Neurological: cranial nerve grossly intact, no focal deficits Psychiatric: normal affect, A&O x 3 Hosp A/P (1) Abscess of prostate Code(s): N41.2 - ABSCESS OF PROSTATE Status: Acute (2) Hematuria Code(s): R31.9 - HEMATURIA, UNSPECIFIED Status: Acute (3) Mass in rectum Code(s): K62.89 - OTHER SPECIFIED DISEASES OF ANUS AND RECTUM Status: Acute (4) Tobacco abuse disorder Code(s): Z72.0 - TOBACCO USE Status: Chronic - Plan has suspected rectal mass with prostate abscess/spread plus 2 cm liver mass in left lobe hemostable is going for spc+ and rectosigmoidoscopy this am with biopsies continue current meds, zosyn, vanc and iv fluids
--- NOTE | 2020-07-28 14:15 | CT ---
CT abdomen with and without contrast CT pelvis with and without contrast: 07/28/2020 HISTORY: 54-year-old male with rectal mass and laya-prosthetic abscess. Status post suprapubic catheter placement by urologist. Status post TURP by urologist. Concern for bowel perforation. Findings discussed immediately after the scan with Dr. Washington. COMPARISON: 07/27/2020 FINDINGS: Again noted is the gas and fluid collection in the region of the prostate. According to the urologist , this is not within the prostate gland, but instead is posterior to the prostate gland. The prostate gland is reportedly very small in size. Again noted is the mass contiguous with the right side of this abscess and contiguous with the right side of the rectum. There is a new Ortiz catheter with balloon in the collapsed urinary bladder. There is a new suprapubic catheter with balloon in the collapsed urinary bladder also. Postcontrast images demonstrate a small amount of excreted contrast material from the ureters, in the urinary bladder lumen. There is a new finding of a large amount of serous density (10 Hounsfield units and lower) throughout much of the pelvic and abdominal cavities, including extraperitoneal anterior pelvic cavity anterior to the urinary bladder, bilateral retroperitoneal fluid, left much greater than right, which reaches the left perisplenic region and left anterior and posterior pararenal spaces, and bilateral paracolic gutters. There is fluid is also present in the subcutaneous fat broadly abutting the anterior surface of the l ower abdominal wall. There is a large amount of extraluminal gas within the abdominal cavity, posterior to the lower porti ons of the bilateral rectus abdominis muscles, tracking more superiorly into the anterior portion of the left upper quadrant peritoneal cavity, to the level of the iliac wing. The suprapubic catheter is close to the redundant loop of sigmoid colon. It is doubtful that there trinh s been perforation of that sigmoid colon, although that cannot be completely excluded. Again noted is a small focal faint ill-defined lesion suspicious for metastasis, in the liver. No major pathology of kidneys, pancreas, adrenals, or spleen. No small bowel dilation. IMPRESSION: 1.) New finding of large amount of fluid within the pelvic cavity and abdominal cavity, mostly retrop eritoneal, but some intraperitoneal. The density of the fluid is consistent with irrigation fluid. Some of this has also travel through the midline defect in the lower abdominal wall from the suprapub ic catheter, and dissected into the subcutaneous fat. 2) suprapubic catheter and Ortiz catheter. 3) other findings as described in detail on 07/27/2020 CT report.
[2020-07-28] MEDS ORDERED: Oxybutynin 5 MG TAB PO PRN (14:16)
--- NOTE | 2020-07-28 14:22 | CT ---
CT pelvis with contrast: (CT cystogram) 07/28/2020 HISTORY: Rectal cancer and laya-prostatic abscess. Status post TURP and suprapubic catheter placement. TECHNIQUE: 20 mL of dilute water-soluble contrast infused into the suprapubic catheter. Scan through pelvis with coronal and sagittal reconstructions. Dr. Watkins discussed the findings with Dr. Washington immediately after the scan. FINDINGS: The urinary bladder lumen is filled and distended with contrast material, outlining the balloons of t he suprapubic catheter and Ortiz catheter. There is a moderate knee large amount of extravasated contrast material anterior to the urinary bladd er, between the anterior wall of the bladder and the lower rectus abdominis muscle. The abscess collection posterior to the posterior urethra, also almost fills completely with the extr avasated contrast material, and this contrast extends into the right posterior lateral component of the collection that extends towards the rectum. Contrast has not reached the lumen of the rectum. IMPRESSION: 1.) Extravasation consistent with Communication via small channels (not visible on CT) between the po sterior urethra and the post prostate collection. 2) extravasation along path of suprapubic catheter anterior to the urinary bladder.
[2020-07-28 14:48] LABS: #Basophils 0.2 thou/uL (0.0-0.2); #Lymphocytes 0.3 thou/uL (1.20-3.40); #Monocytes 0.1 thou/uL (0.11-0.59); #Neutrophils 11.7 thou/uL (1.40-6.50); %Basophils 1.4 % (0.0-1.0); %Eosinophils 0.4 % (0.0-10.0); %Lymphocytes 2.1 % (21.0-51.0); %Monocytes 0.6 % (0.0-10.0); %Neutrophils 95.5 % (42.0-75.0); Hemoglobin 11.8 g/dL (14.0-18.0); Mean Corpuscular HGB CONC 31.8 g/dL (32.0-36.0); Mean Corpuscular Hemoglobin 28.4 pg (27.0-31.0); Mean Corpuscular Volume 89.4 fL (78.0-98.0); Mean Platelet Volume 6.5 fL (7.4-10.4); Platelet Count 362 thou/uL (130-400); RBC Distribution Width 13.1 % (11.5-14.5); Red Blood Cell (RBC) Count 4.16 mill/uL (4.70-6.10); White Blood Cell (WBC) Count 12.2 thou/uL (4.8-10.8)
--- NOTE | 2020-07-28 15:43 | CON ---
DATE OF CONSULTATION: REASON FOR CONSULTATION: Suspected rectal cancer. HISTORY OF PRESENT ILLNESS: Mr. Sanchez is a 54-year-old man who I know from previous visits. I have seen him in my clinic in the past for a large symptomatic inguinal hernia for which he underwent repair earlier this year. He had not had a previous colonoscopy, and I had recommended this, but he did not want to do this immediately and wanted to proceed with hernia repair. First, he was unable to work due to his large hernia. He has done well from the hernia itself, but came back to the hospital because he had been on antibiotics for a urinary tract infection for 9 days and was not having any improvement in symptoms. Yesterday, he noticed a pink tinge to his urine and became concerned, so into the emergency room. He underwent a CT scan of the abdomen and pelvis, which showed a large fluid and gas collection, prostatic abscess as well as circumferential thickening of the rectum concerning for rectal mass. A repeat CT with contrast was performed and this did not seem to indicate a connection between the mass and the prostatic fluid collection concerning for rectal cancer prostatic area. Dr. Washington took him to the operating room this morning for exam under anesthesia, TURP. On transrectal, possible aspiration of the prostatic abscess and suprapubic tube placement. He also underwent flexible sigmoidoscopy by Dr. Viera with multiple biopsies of the rectum taken. The patient did have some swelling in the suprapubic area after placement of the suprapubic tube. A repeat CT scan was performed, which showed a large fluid collection and contrast extravasation from the bladder. The extraperitoneal space in the suprapubic and left lateral area as well as some contrast extravasation from the area of the prostate resection into the perirectal tissues. These two collections do not appear to be contiguous. The patient has not had any signs of sepsis. He has not been febrile, his white count was not elevated. He was not having fevers or chills, and he was not even having any significant pelvic pain, just dysuria and hematuria. He has had significant weight loss over the past 2 years, but this has been intentional. He has been on a low carb diet and really focusing on getting his weight under control and over the period about 2 years, has lost approximately 200 pounds. He had had some diarrhea recently, but thought this was related to the hernia. He had not had any rectal bleeding or melena. PAST MEDICAL HISTORY: Tobacco abuse. No history of cardiac or pulmonary disease. No family history of GI malignancy. PAST SURGICAL HISTORY: Inguinal hernia repair on the left and flexible sigmoidoscopy, TURP, transrectal aspiration of prostate abscess, and suprapubic tube placement today. SOCIAL HISTORY: The patient is a long-time smoker. Does not drink or use any illicit drugs. He was accompanied by his common-law that he has been with for over a decade. FAMILY HISTORY: He does have a family history of brain cancer in his father. ALLERGIES: HE HAS NO KNOWN DRUG ALLERGIES. OUTPATIENT MEDICATIONS: Nitrofurantoin for UTI. PHYSICAL EXAMINATION: Performed this morning, VITAL SIGNS: The patient was afebrile with normal heart rate, respirations, and room air sats. Blood pressure was slightly elevated at 158/79. GENERAL: Reveals a healthy-appearing man, in no acute distress. HEENT: Unremarkable except for poor dentition. Pupils are equal with normal extraocular movements. NECK: Supple without lymphadenopathy or thyroid nodules. HEART: Regular in its rate and rhythm without murmurs, rubs, or gallops. LUNGS: Clear to auscultation bilaterally. ABDOMEN: Soft, nontender, nondistended. EXTREMITIES: Warm, well perfused without edema. NEUROLOGIC: No focal deficits. PSYCHIATRIC: Alert, oriented, and appropriate. His full rectal examination was performed in the cystoscopy suite while the patient was under anesthesia. He has a large circumferentially ulcerated rectal mass which abuts the anal sphincters, but does not appear to directly involved them. This extends for the length of the examining finger, and I was unable to palpate normal rectum beyond the mass. The mass did allow passage of a finger, but appeared somewhat narrow. LABORATORY DATA: White count is only slightly elevated at 10.9 with a slight left shift, hematocrit of 40, and platelets of 404. Coags were normal. Electrolytes were unremarkable. Renal function is normal. BNP was mildly elevated at 120 and CEA was elevated at 61. UA showed a large amount of blood, moderate leukocyte esterase, and 3+ bacteria. COVID serology was negative, and hepatitis serology was negative. IMAGING DATA: CT images are reviewed. He also underwent a CT of the abdomen and pelvis on admission, which showed a suspected mass in the left lobe of the liver concerning for metastatic disease. ASSESSMENT: Likely metastatic rectal cancer fistulizing to the prostate with abscess formation. This has been drained via a TURP by Dr. Washington and the bladder has been decompressed with the suprapubic catheter. It is unclear whether there is direct involvement of the prostate either rectal cancer. The patient does have a large fluid collection in the extraperitoneal space following his suprapubic tube placement. I think this is probably just extravasating fluid from the suprapubic tube. The bleeding cannot be completely ruled out. I do not think that bowel injury is a concern. I do not see any free air or free fluid in the abdomen, although I will review the images with the radiologist. The formal report is not yet available. I will plan on performing serial abdominal exams once the patient is recovered from anesthesia and checking some serial H and H labs and monitoring vital signs, I suspect that this will resolve or and drain with decompression of the bladder, although we will need to watch for any infectious applications long-term. He will require chemotherapy and radiation for the rectal cancer, although it appears this is already metastatic given the suspicious lesion in the left lobe of the liver and his elevated CEA. He will need to be re-evaluated following treatment to see if he is a candidate for surgical resection. He may require diversion with a colostomy. If he has persistent infectious symptoms, although it appears that his prostatic abscess was adequately drained at this time and has basically been converted into a fistula between the prostatic urethra and the rectal mass. He is a high risk for urethral stricture, which was the reasoning behind the suprapubic tube placement and may require prostatectomy as well as abdominoperineal resection, so he does look like he is a surgical candidate. I would recommend that this be done by surgical oncologist or colorectal specialist in conjunction with a urologist; once his pathology is available, Radiation Oncology and Oncology will be consulted. His blood pressure has been moderately elevated throughout this hospital stay, but he is on the Hospitalist Service and they are following him for his medical management. I suspect he has preexisting untreated hypertension. Job ID: [id number]
--- NOTE | 2020-07-28 16:07 | PDOC.GSPN ---
Surgery Progress Note: Subj - Subjective Narrative: Patient has returned to his room. He denies any abdominal pain except for some soreness around the suprapubic tube. The suprapubic area is less swollen than the endoscopy suite and he has no abdominal pain or tenderness to palpation. Will follow labs and clinical exam. Awaiting pathology results. Surgery Progress Note: Obj - Vital signs Vital signs: Vital Signs - Most Recent Temp Pulse Resp BP Pulse Ox 98.5 F 74 15 158/79 H 98 07/28/20 08:00 07/28/20 08:00 07/28/20 08:00 07/28/20 08:00 07/28/20 08:00 Surgery Progress Note: Results - Labs Result Diagrams: 07/28/20 14:38 07/28/20 05:06 Lab results: Laboratory Results - last 12 hr 07/27/20 07/28/20 07/28/20 17:02 05:06 05:06 WBC 12.0 H RBC 4.04 L Hgb 11.6 L Hct 35.9 L MCV 88.9 MCH 28.7 MCHC 32.2 RDW 13.0 Plt Count 319 MPV 7.2 L Neutrophils % 84.1 H Lymphocytes % 9.0 L Monocytes % 5.4 Eosinophils % 1.4 Basophils % 0.2 Neutrophils # 10.1 H Lymphocytes # 1.1 L Monocytes # 0.6 H Eosinophils # 0.2 Basophils # 0.0 PT INR APTT Sodium 137 Potassium 4.4 Chloride 104 Carbon Dioxide 27 Anion Gap 10 BUN 9 Creatinine 0.69 L Estimated GFR (MDRD) Greater than 90 Glucose 92 Calcium 7.7 L B-Natriuretic Peptide Carcinoembryonic Ag SARS-CoV-2 (PCR) Not Detected 07/28/20 07/28/20 07/28/20 05:06 05:06 05:06 WBC RBC Hgb Hct MCV MCH MCHC RDW Plt Count MPV Neutrophils % Lymphocytes % Monocytes % Eosinophils % Basophils % Neutrophils # Lymphocytes # Monocytes # Eosinophils # Basophils # PT 13.9 INR 1.0 APTT 32.6 Sodium Potassium Chloride Carbon Dioxide Anion Gap BUN Creatinine Estimated GFR (MDRD) Glucose Calcium B-Natriuretic Peptide 120.9 H Carcinoembryonic Ag 61.02 H SARS-CoV-2 (PCR) 07/28/20 14:38 WBC 12.2 H RBC 4.16 L Hgb 11.8 L Hct 37.2 L MCV 89.4 MCH 28.4 MCHC 31.8 L RDW 13.1 Plt Count 362 MPV 6.5 L Neutrophils % 95.5 H Lymphocytes % 2.1 L Monocytes % 0.6 Eosinophils % 0.4 Basophils % 1.4 H Neutrophils # 11.7 H Lymphocytes # 0.3 L Monocytes # 0.1 L Eosinophils # 0.0 Basophils # 0.2 PT INR APTT Sodium Potassium Chloride Carbon Dioxide Anion Gap BUN Creatinine Estimated GFR (MDRD) Glucose Calcium B-Natriuretic Peptide Carcinoembryonic Ag SARS-CoV-2 (PCR)
--- NOTE | 2020-07-28 19:31 | OP ---
DATE OF PROCEDURE: 07/28/2020 PROCEDURE PERFORMED: Flexible sigmoidoscopy. PREOPERATIVE DIAGNOSIS: Rectal mass. DESCRIPTION OF PROCEDURE: Informed consent was obtained from the patient. He was sedated with general anesthesia and underwent urological procedure prior to flexible sigmoidoscopy. This procedure followed under the same sedation. Rectal exam was performed and revealed stricturing mass in the distal rectum. The endoscope was advanced to the distal sigmoid. There was a circumferential ulcerated mass extending from just above the anal verge up to 16 cm proximal to the anal verge. The mucosa of the duodenum immediately above that appears unremarkable, where it was cleaned with irrigation, but otherwise this area was covered in stool. The procedure was not prepped. Biopsies were taken at multiple levels of the mass for diagnosis. The patient tolerated the procedure without immediate complications. IMPRESSION: 1. Ulcerated rectal mass from just above the anal verge to 16 cm circumferentially. Multiple biopsies taken. 2. Unremarkable sigmoid mucosa just above the mass. The exam was otherwise unprepped and this area proximal to the mass was not well visualized. RECOMMENDATIONS: Await histopathology. Job ID: [id number]
[2020-07-28] MEDS: HYDROcodone/Acetaminophen 5/325 mg Tablet PO PRN (20:21)
[2020-07-28 20:32] LABS: Hemoglobin 12.1 g/dL (14.0-18.0)
--- NOTE | 2020-07-28 22:41 | PDOC.GSPN ---
Surgery Progress Note: Subj - Subjective Narrative: Abdomen nontender, H/H and VS stable. DC serial H/H. Likely repeat CT in a few days. Surgery Progress Note: Obj - Vital signs Vital signs: Vital Signs - Most Recent Temp Pulse Resp BP Pulse Ox 98.4 F 75 16 118/71 99 07/28/20 20:00 07/28/20 20:00 07/28/20 20:00 07/28/20 20:00 07/28/20 20:00 Surgery Progress Note: Results - Labs Result Diagrams: 07/28/20 20:24 07/28/20 05:06 Lab results: Laboratory Results - last 12 hr 07/27/20 07/28/20 07/28/20 17:02 14:38 20:24 WBC 12.2 H RBC 4.16 L Hgb 11.8 L 12.1 L Hct 37.2 L 38.1 L MCV 89.4 MCH 28.4 MCHC 31.8 L RDW 13.1 Plt Count 362 MPV 6.5 L Neutrophils % 95.5 H Lymphocytes % 2.1 L Monocytes % 0.6 Eosinophils % 0.4 Basophils % 1.4 H Neutrophils # 11.7 H Lymphocytes # 0.3 L Monocytes # 0.1 L Eosinophils # 0.0 Basophils # 0.2 SARS-CoV-2 (PCR) Not Detected
[2020-07-29] MEDS ORDERED: Vancomycin HCl 1.75 GM in Sodium Chloride 0.9% 500 ML IVPB SCH ×2 (03:00→06:00)
[2020-07-29] MEDS: Piperacillin/Tazobactam 3.375 GM in Sodium Chloride 0.9% 100 ML IVPB SCH ×3 (06:14→18:11)
[2020-07-29] MEDS: Sodium Chloride 0.9% 1,000 ML IV SCH ×3 (06:14→19:41)
[2020-07-29 06:31] LABS: Band 1 % (5-11); Hemoglobin 11.9 g/dL (14.0-18.0); Lymphocytes 1 % (21-51); MDiff Complete? YES; Mean Corpuscular Hemoglobin 28.2 pg (27.0-31.0); Mean Corpuscular Volume 88.1 fL (78.0-98.0); Mean Platelet Volume 6.6 fL (7.4-10.4); Neutrophil 98 % (42-75); Platelet Count 386 thou/uL (130-400); RBC Distribution Width 12.9 % (11.5-14.5); Red Blood Cell (RBC) Count 4.21 mill/uL (4.70-6.10); White Blood Cell (WBC) Count 21.9 thou/uL (4.8-10.8)
[2020-07-29 06:38] LABS: #Lymphocytes 0.6 thou/uL (1.20-3.40); #Monocytes 0.7 thou/uL (0.11-0.59); #Neutrophils 18.2 thou/uL (1.40-6.50); %Lymphocytes 3.3 % (21.0-51.0); %Monocytes 3.5 % (0.0-10.0); %Neutrophils 93.2 % (42.0-75.0)
[2020-07-29 07:08] LABS: Vancomycin, Trough 22.7 ug/mL
[2020-07-29 07:10] LABS: Anion Gap 11 mmol/L (10-20); BUN (Urea Nitrogen) 9 mg/dL (8.4-25.7); Calc. Creatinine Clearance 155 mL/min (70-130); Calcium 7.6 mg/dL (7.8-10.44); Carbon Dioxide 23 mmol/L (22-29); Chloride 107 mmol/L (98-107); Estimated GFR-MDRD Greater than 90; Glucose 123 mg/dL (70-105); Potassium 4.1 mmol/L (3.5-5.1); Sodium 137 mmol/L (136-145)
[2020-07-29] MEDS: Famotidine 20 MG TAB PO SCH ×2 (07:50→19:31)
--- NOTE | 2020-07-29 08:02 | PRG ---
DATE OF SERVICE: 07/29/2020 SUBJECTIVE: feels well, no significant abdominal discomfort. No nausea or vomiting. Has great appetite, desires to advance his diet. Significant other at bedside, wondering when he can be discharged home as he would like to sleep in his own bed. He has had a few bowel movements, slightly bloody. OBJECTIVE: VITAL SIGNS: Stable. He is afebrile. I's and O's 600 in and 2400 out of yellow urine, there is some sediment, consistent with presenting abscess. CBI was never started postop, status post TURP. GENERAL: The patient is in no acute distress. HEART: Regular rate. LUNGS: Clear. ABDOMEN: Soft. No rigidity. No rebound. Lower subcutaneous prominence noted yesterday perioperative period has resolved. There is no significant serosanguineous discharge at the SP tube site. GENITOURINARY: Ortiz catheter demonstrates yellow urine with sediment as expected. EXTREMITIES: No cyanosis, clubbing, or edema. No calf tenderness appreciated. URETHRA: Ortiz catheter removed by , suprapubic tube transition to gravity bag LABORATORY DATA: His H and H are stable, white count 21, hemoglobin 11.8, platelet 389. BMP profile is within normal limits with creatinine 0.69. Blood culture 1/2 positive for gram-negative pardeep. Urine culture is negative thus far. Transrectal ultrasound aspirate of perirectal abscess demonstrates gram-negative pardeep, gram-positive cocci, currently on Zosyn and vancomycin day 2. IMPRESSION AND PLAN: Mr. Sanchez is a pleasant 54-year-old male, who presented with CT demonstrating complicated abscess, perirectal, periprostatic, circumferential rectal mass. Postop day #1 status post cysto, suprapubic tube, TUR, transrectal ultrasound, aspiration of perirectal abscess, flexible sigmoidoscopy, multiple biopsies performed by GI. His CEA is grossly elevated consistent with GI malignancy. Plan\: await pathology, culture sensitivities. I informed the patient that there is a possibility he can be discharged if cultures are finalized with appropriate antibiotic therapy. I do anticipate the patient may require a PICC line, for IV antibiotics. Await final culture sensitivity. Pathology for GI, TUR specimen pending. patient is aware regarding rectal cancer as working diagnosis. metastatic workup per Dr. Nevarez . He does present with liver METS demonstrating poor prognosis. Case management consult advised, as he is uninsured and will require further intervention workup etc. Leukocytosis, likely reactive ; expected. He remains pain free, benign abdominal exam, with no fever. The patient to be out of bed, SCDs, bilateral MAGNO hose in place for now. Advance diet. hold anticoagulation for DVT prophylaxis for now, due to recent surgery. Job ID: [id number] [facility] CENTERJavier
[2020-07-29 08:38] LABS: % Free PSA 9.3 % (.); Total PSA 2.7 ng/mL (0.0-4.0)
--- NOTE | 2020-07-29 12:14 | OP ---
DATE OF PROCEDURE: 07/28/2020 PREOPERATIVE DIAGNOSIS: 1. A 54-year-old male with rectal mass. 2. Perirectal abscess. 3. Prostatic abscess. POSTOPERATIVE DIAGNOSES: 1. A 54-year-old male with rectal mass. 2. Perirectal abscess. 3. Prostatic abscess. PROCEDURES PERFORMED: Cystoscopy, transurethral resection of prostate/transurethral unroofing of abscess , 20-Moroccan Councill tip suprapubic tube placement via ultrasound guidance, dilation of suprapubic tube tract, transrectal ultrasound of prostate, transrectal needle aspiration of perirectal abscess, 20-Moroccan three-way indwelling urethral Ortiz catheter placement. ANESTHESIA: General. SPECIMENS: 1. TUR of prostate. 2. Perirectal abscess. Needle aspiration sent for culture, anaerobe and aerobic and Gram-stain. ESTIMATED BLOOD LOSS: Minimal. INDICATIONS FOR PROCEDURE AND HISTORY: Mr. Sanchez is a pleasant 54-year-old male who presents with a dysuria. CT demonstrates prostatic abscess, with air-fluid level within the prostate, contiguous with air fluid collection in the perirectal, periprosthetic region. He has circumferential abnormality of his rectum, digital rectal exam is grossly abnormal, consistent with rectal cancer. He has had no obstructive urinary symptoms. He presents today for the above procedure. He is in full understanding regarding risks and complications of the procedure including, but not limited to, bleeding, pain, infection, injury to adjacent organs, urosepsis, injury to adjacent organs such as rectum, ureters, bladder injury, injury to bowel contents. All questions were answered to his satisfaction and desired to proceed. DESCRIPTION OF PROCEDURE: After an informed consent was signed, the patient was taken to the operating room, placed in a dorsal lithotomy position. I performed a digital rectal exam, formal prep demonstrating circumferential abnormality of indurated mass in the rectum highly suspicious for rectal malignancy. At this time, we performed a standard cystoscopy, which demonstrated no evidence of urethral stricture. The prostatic urethra demonstrated no gross bulging component consistent with abscess per se. There was no evidence of stricture, no significant obstruction component from his prostate. No median lobe was noted. The ureteral orifices are about 3 mm proximal to the bladder neck. Bladder itself demonstrates no evidence of trabeculation. No bladder stones. No malignancy noted. At this time, we performed a transurethral resection of prostate. Transurethral resection of the prostate was performed on the right lateral lobe as this was where the perirectal periprosthetic fluid appears to be connected more on the right side of his prostate. Transurethral resection of the prostate was performed. There was some oozing of a cloudy fluid /debris as we were resecting, however, no gross abscess cavity was seen. His digital rectal exam demonstrated the palpability, as such that his prostate did not feel significantly enlarged. As I had concerns regarding small prostate volume, moreover a large rectal mass abutting the prostate ; I did not want to aggressively resect to keep the rectum out of harm's way. Therefore, I did perform a transrectal ultrasound. The probe was gently passed into his anus. We visualized the prostate, in which multiple views were taken, which I did not see any obvious fluid collection within the prostate itself. perirectal/periprostatic abscess fluid collection was seen , using an 18-gauge needle, we were able to aspirate all the fluid, which was consistent with pus, and sent for appropriate stains. Resolution of the fluid collection on ultrasound was noted as it was aspirated. As there was no obvious fluid collection within the prostate tissue itself, I did not perform a further TURP. Good hemostasis was obtained. At this time, the bladder was distended to the level of the umbilicus. A 20-gauge spinal needle was placed 2 fingerbreadths above his pubic symphysis and we obtained clear fluid consistent with irrigation. An 11 blade needle was utilized to cut his skin and his fascia and using a Malecot trocar needle, we then went in through the access created obtaining access into the bladder. A 0.035 Super Stiff wire was placed into the bladder and using a 30-Moroccan NephroMax balloon dilator, the tract was dilated. Subsequently, we were able to pass a 20-Moroccan [place] tip Ortiz catheter without significant issues and 15 mL of sterile water placed with suprapubic tube plugged. A 20-Moroccan three-way Ortiz catheter was placed. There was resistance passing a regular three way, therefore a Councill tip was passed without significant issues. CBI at a low rate demonstrating clear output. While the bladder was being decompressed with a suprapubic tube insertion, he began to develop some prominence in the subcutaneous tissue, and visualization became poor with contents of subcutaneous tissue becoming more prominent. After his sigmoid colonoscopy with Dr. Viera. We will obtain CT of the abdomen and pelvis. Job ID: [id number] MTDD
[2020-07-29] MEDS ORDERED: Sodium Bicarbonate 2.5 MEQ/5 ML VIAL ONE (12:41)
[2020-07-29] MEDS ORDERED: Midazolam HCl 2 mg/2 ml Vial ONE (12:41)
[2020-07-29] MEDS ORDERED: Fentanyl 100 MCG/2 ML VIAL ONE (12:41)
--- NOTE | 2020-07-29 12:49 | PDOC.HOSPP ---
- Subjective Encounter Date: 07/29/20 Encounter Time: 10:00 Subjective: is ambulating in hallway mild pain at surgical site otherwise is comfortable - Objective Vital Signs & Weight: Vital Signs (12 hours) Temp Pulse Resp BP Pulse Ox 07/29/20 12:00 98.3 F 74 15 117/73 94 L 07/29/20 08:00 97.8 F 65 16 118/68 98 07/29/20 07:15 97.8 F 65 118/68 93 L 07/29/20 06:39 98.1 F 74 18 127/68 99 07/29/20 04:00 98.1 F 74 16 127/60 96 07/29/20 00:53 97.7 F 71 18 103/58 L 93 L Weight Weight 197 lb 15.954 oz I&O: 07/28/20 07/29/20 07/30/20 06:59 06:59 06:59 Intake Total 600 600 Output Total 1900 2400 200 Balance -1300 -1800 -200 Result Diagrams: 07/29/20 01:49 07/29/20 01:49 Hospitalist ROS - Medication Medications: Active Medications Generic Name Dose Route Start Last Admin Trade Name Freq PRN Reason Stop Dose Admin Hydrocodone Bitart/Acetaminophen 1 tab 07/27/20 17:54 07/28/20 20:21 Hydrocodone/Acetaminophen 5/325 Mg Tablet PO 1 tab Q4H PRN Administration Moderate Pain (4-6) Famotidine 20 mg 07/27/20 21:00 07/29/20 07:50 Famotidine 20 Mg Tab PO 20 mg BID KEVEN Administration Sodium Chloride 1,000 mls @ 125 mls/hr 07/27/20 18:00 07/29/20 10:00 Normal Saline 0.9% IV 1,000 mls .Q8H KEVEN Administration Piperacillin Sod/Tazobactam 100 mls @ 200 mls/hr 07/27/20 23:59 07/29/20 12:41 Sod 3.375 gm/ Sodium Chloride IVPB 100 mls Q6HR KEVEN Administration Vancomycin HCl 1.75 gm/ Sodium 500 mls @ 250 mls/hr 07/29/20 06:00 07/29/20 06:21 Chloride IVPB 500 mls 0600,1800 KEVEN Administration - Exam General Appearance: awake alert Eye: PERRL, anicteric sclera ENT: no oropharyngeal lesions, moist mucosa Neck: supple, no JVD Heart: RRR, no murmur Respiratory: no wheezes, no rales, rhonchi Gastrointestinal: soft, non-tender, non-distended, normal bowel sounds Gastrointestinal - other findings: spc+ Extremities: no cyanosis, no edema Neurological: cranial nerve grossly intact, no focal deficits Psychiatric: normal affect, A&O x 3 Hosp A/P (1) Abscess of prostate Code(s): N41.2 - ABSCESS OF PROSTATE Status: Acute (2) Hematuria Code(s): R31.9 - HEMATURIA, UNSPECIFIED Status: Acute (3) Mass in rectum Code(s): K62.89 - OTHER SPECIFIED DISEASES OF ANUS AND RECTUM Status: Acute (4) Tobacco abuse disorder Code(s): Z72.0 - TOBACCO USE Status: Chronic - Plan has suspected rectal mass with prostate abscess/spread plus 2 cm liver mass in left lobe hemostable s/p spc+, turp and rectosigmoidoscopy with biopsies 07/28/20 continue current meds, zosyn, vanc 1 of 2 blood cs are growing gm -ve pardeep, ID consult prostate abscess fluid culture is pending await histopath
--- NOTE | 2020-07-29 15:18 | CT ---
CT-guided right hepatic lobe lesion biopsy INDICATION: History of rectal adenocarcinoma with concern for hepatic metastatic disease. COMPARISON: CT abdomen and pelvis dated 07/28/2020 and 07/27/2020. TECHNIQUE: Informed consent was obtained. Preprocedure CT images were obtained of the right upper eloy drant for guidance purposes only. Site overlying the suspicious hypodense lesion in the right hepatic lobe was marked. The site was prepped and draped in the usual sterile fashion. The patient un derwent conscious sedation under guidance of the radiology nurse and received 1 mg of IV Versed. Buffered 1% lidocaine was administered to the overlying subcutaneous tissues. A small dermatotomy was made. A 17-gauge trocar needle was guided down to the lesion. Two separate core samples were obtained utilizing an 18-gauge core biopsy device. Pathology was on-site to verify adequacy of tissue sampling. The patient tolerated the biopsy without difficulty. Postprocedural images demonstrate no significant intraparenchymal hemorrhage. Small amount of gas is seen overlying the right hepatic m argin from the injection site. IMPRESSION: Successful CT-guided right hepatic lesion core biopsy. Transcribed Date/Time: 07/29/2020 4:14 PM
--- NOTE | 2020-07-29 15:35 | SPC ---
Ultrasound and Fluoroscopic guided left upper extremity PICC placement HISTORY: Infection. Patient needs long-term IV antibiotics. FINDINGS: Informed consent obtained prior to the procedure. An appropriate access site was determined with ultrasound guidance. The area was then meticulously pr epped and draped in usual sterile fashion. Skin overlying the left basilic vein anesthetized with 1% buffered lidocaine. Utilizing direct sonogr aphic guidance, vascular access is obtained via the left basilic vein, and an 0.018in guidewire was advanced to the distal SVC. Intravascular length is calculated at 44 cm, and the PICC is cut accordin gly. Needle is removed and replaced with a peel-away sheath. The PICC was advanced over the wire. Wire and peel-away sheath were removed. The tip of the catheter overlies the distal SVC. The catheter was accessed and aspirated/flushed easily. Exposure data: 0.2 minutes of fluoroscopic time 757 mGy centimeter squared FINDINGS: Technically successful placement of a 44 centimeter single lumen 5 Pashto left upper extremity PICC l ine. IMPRESSION: Successful ultrasound guided placement of a left upper extremity PICC.
[2020-07-29 17:38] LABS: Vancomycin, Trough 13.3 ug/mL
[2020-07-29] MEDS: HYDROcodone/Acetaminophen 5/325 mg Tablet PO PRN (18:09)
--- NOTE | 2020-07-29 20:31 | CON ---
DATE OF CONSULTATION: 07/29/2020 REASON FOR CONSULTATION: Perirectal abscess. HISTORY OF PRESENT ILLNESS: A 54-year-old with history of chronic smoking, who apparently was diagnosed with urinary tract infection. Two weeks prior to admission, he was given nitrofurantoin, but persisted with some symptoms including change in color of urine and some hematuria as well. He did not actually have dysuria and denied any fever or chills. He also had a prior history of prostate infection, treated with antimicrobials as well. No headaches. No shortness of breath or cough. No abdominal pain or diarrhea. MEDICAL HISTORY: 1. Tonsillectomy. 2. UTI. 3. Prostatitis. 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 Lives in [place], I believe. He quit drinking about 7 years ago. He is still smoking 2 packs a day. ALLERGIES: NO ALLERGIES REPORTED. MEDICATIONS: He had been on Macrodantin and currently is on vancomycin, Zosyn, and hydrocodone. PHYSICAL EXAMINATION: VITAL SIGNS: T-max 98.4 and 98.6, BP 117/73, heart rate 74, respiratory rate 15, and O2 saturation 94. SKIN: Minor changes in the perianal region. He has a suprapubic catheter, which was placed after admission when he had intervention by Dr. Washington. There was a suspicion of prostate abscess, but what actually turned out to be a perirectal abscess associated with a rectal mass. As part of the staging procedure, a CT of abdomen was done, which showed a possible liver met, so the patient had an endoscopy of the colon. It showed ulcerated mass in the right above the anal verge. This was biopsied. The liver lesion was biopsied as well. The patient is currently in the floor and feeling somewhat better, still with mild pain. Peripheral IV access and sent and a PICC line in left upper extremity. Ocular movements conjugate. Oral cavity normal. NECK: Supple. LUNGS: Symmetric. Clear breath sounds. HEART: S1 and S2. Regular rate. No S3 or S4. ABDOMEN: Soft, not distended or tender. No ascites. No bladder distention. Suprapubic catheter in place. Ortiz has been removed. EXTREMITIES: No joint inflammatory activity. 1+ edema in the lower extremities. Pulses 1+ in dorsalis pedis. He is diffusely weak, but he is able to move all 4 extremities. He is oriented, follows commands. Speech is normal. No delusional thinking process. LABORATORY DATA: White cell count is 10.9 up to 21.9, hemoglobin down from 13 to 11, and platelets down from 404 to 386, 93% neutrophils, and INR 1.0. Sodium 137 creatinine 0.71. BNP 120. Liver profile within normal limits. Albumin 3.3, globulin 3.6. Lipase 19. CEA was 61. PSA was 0.225, free PSA, and total PSA 2.7. The path reports are pending. ASSESSMENT: Prior urinary tract infections, now with evidence of a rectal mass, which was probably an adenocarcinoma, pending path report associated with this. The patient has a perirectal abscess probably with fistulization between the mass and the perirectal space. Initially it was felt that the prostate was the site of the abscess, but actually the prostate gland was small and not involved. He did have cystoscopy and TURP. A now he has suprapubic catheter. The patient cultures have yielded a gram-negative pardeep thus far, the perirectal abscess cultures are polymicrobial as expected and he is currently on a combination of vancomycin and Zosyn. We will go ahead and discontinue vancomycin and continue Zosyn alone. Monitor results of cultures and he will need protracted antimicrobial therapy. He could potentially be done via the oral route depending on culture results or more likely will require continuation of antimicrobial therapy intravenously. The patient is scheduled, I believe, for neoadjuvant chemoradiation after the infection is treated, and then subsequent attempt at resection as long as the there is an adequate response to the neoadjuvant therapy. He does have this possible mass in the liver and the path for that mass is pending. He may need resection of that area as well. The duration of therapy for the antimicrobials once we have the final regimen established and should be to be anywhere from 2-3 weeks approximately, end points include resolution of imaging findings as well as inflamm marker karen- lization Job ID: [id number] [facility]
--- NOTE | 2020-07-29 20:33 | CON ---
DATE OF CONSULTATION: REASON FOR CONSULT: Rectal mass. HISTORY OF PRESENT ILLNESS: Mr. Sanchez is a 54-year-old gentleman who presented to the emergency room for hematuria. He underwent a CT scan of the abdomen and pelvis, which showed a large fluid and gas collection with prostatic abscess and circumferential thickening of the rectum. He eventually went to the emergency room with Dr. Washington and Dr. Viera. Dr. Washington performed a TURP with suprapubic tube placement. Dr. Viera had took multiple biopsies of the rectum, which are currently pending. On CT scan, he had a solitary 2 cm liver lesion. This was biopsied today and is currently pending as well. The patient is on antibiotics. He has no elevation in his white count. His CEA is elevated at 61. He denies any bowel changes. No constipation. No rectal pain. No blood in his stool. He has had 200-pound weight loss over the last several years while on a low carb diet. He does have a history of two pack year smoking, remote history of drinking. He was seen at bedside with his daughter present. PAST MEDICAL HISTORY: 1. Hypertension. 2. History of hepatitis A as a child. 3. Tobacco use. PAST SURGICAL HISTORY: Inguinal hernia repair earlier this year. ALLERGIES: NO KNOWN DRUG ALLERGIES. HOME MEDICATIONS: None. FAMILY HISTORY: Unknown type of cancer. SOCIAL HISTORY: , lives with his . 60 pack-year history of smoking. REVIEW OF SYSTEMS: A 10-point review of systems is negative except for noted in HPI. PHYSICAL EXAMINATION: VITAL SIGNS: Temperature is 98.3, pulse is 74, respiratory rate 15, BP is 117/73. He is 94% on room air. GENERAL: A well-developed, well-nourished male, in no acute distress. HEENT: Normocephalic, atraumatic. Pupils are equal and reactive to light. He has poor dentition with rotting teeth. NECK: Supple. CV: Regular rate and rhythm. LUNGS: Clear. ABDOMEN: Soft and nontender. Bowel sounds are positive. He has a dressing in his suprapubic area which is clean and dry. EXTREMITIES: There is no clubbing or cyanosis. SKIN: No rash. HEMATOLOGICAL: No petechiae or purpura. NEUROLOGICAL: Nonfocal. PERTINENT LABORATORY DATA AND X-RAYS: Current WBCs 21.9, hemoglobin 11.9, hematocrit 37.1, platelet count is 386,000, 93% neutrophils, 3% lymphocytes. PT 13.9, INR is 1, PTT is 32.6. Sodium 137, potassium 4.1, chloride 107, CO2 is 23, BUN is 9, creatinine is 0.71, calcium is 7.6, magnesium 2. Bilirubin 0.2. AST is 14, ALT is 9, alkaline phosphatase is 80. Serum total protein 6.9, albumin 3.3, globulin 3.6. CEA is 61. PSA is 2.7. Urine showed 3+ bacteria. His COVID PCR negative. Hepatitis and HIV panel negative. Radiology; CT of the abdomen and pelvis showed a 5.5 x 3 x 6 cm prostatic abscess. There was a 3 x 2.5 x 4.5 cm tumor mass on the right side of the rectum. Lower rectum and anorectal junction thickening. 2 cm liver METS of the left lobe of the liver. ASSESSMENT: 1. Rectal mass, possibly rectal adenocarcinoma. 2. 2 cm liver mass consistent with metastatic disease. 3. Perirectal abscess. DISCUSSION: The patient appears to have locally advanced rectal cancer with one site of distant metastasis in the liver. Assuming this is adenocarcinoma, the patient would need a concurrent chemo radiation, although this may be adjusted given his abscess. He would then have surgery and possible resection or ablation of his liver METS. This was briefly discussed with the patient and will be further discussed once pathology is back. He can meet with Dr. Pimentel in the outpatient setting. Unfortunately, the patient is unfunded. We will have employment case manager work with the patient to hopefully get financial assistance. Case will be discussed with Dr. Pimentel. Thank you for the consult. Job ID: [id number]
--- NOTE | 2020-07-29 20:42 | PRG ---
DATE OF SERVICE: 07/29/2020 REASON FOR CONSULTATION: Rectal mass. SUBJECTIVE: The patient underwent flexible sigmoidoscopy yesterday with a large circumferential mass located just past the anal verge and extending into the sigmoid colon. Multiple biopsies were obtained from this lesion with biopsies initially seen as invasive adenocarcinoma with the prior CT scan showing a faint ill-defined lesion in the liver suspicious for metastasis. He also underwent liver biopsy earlier today as well. Since undergoing liver biopsy, the patient states that he is doing well with no acute events or problems. Currently, he denies any nausea, vomiting, fevers, chills, hematemesis, melena, hematochezia, or abdominal pain. OBJECTIVE: VITAL SIGNS: Temperature 98.5, pulse 70, blood pressure 135/79, respiratory rate 22, saturating 96% on room air. GENERAL: The patient was lying in bed, in no acute distress. Alert and oriented x4. CARDIOVASCULAR: Regular rate and rhythm. RESPIRATORY: Clear to auscultation bilaterally. ABDOMEN: Normoactive bowel sounds. Soft, nontender, nondistended. EXTREMITIES: No cyanosis, clubbing, or edema. LABORATORY DATA: CBC with a white blood cell count of 21.9, hemoglobin 11.9, hematocrit 37.1, and platelets 386. Chemistry with a sodium of 137, potassium of 4.1, chloride 107, CO2 of 23, BUN 9, creatinine 0.71, glucose 123. CEA 61.02. IMAGING DATA: The patient underwent flexible sigmoidoscopy on July 28, 2020, which showed a strictured mass within the distal rectum where a circumferential ulcerated mass was seen extending from just above the anal verge to approximately 16 cm past the anal verge. The mucosa proximal to this region was normal in appearance with biopsies taken of the mass for further evaluation. Pathology of the biopsies taken showed the presence of invasive colonic adenocarcinoma that was moderately differentiated. ASSESSMENT AND PLAN: The patient is a 54-year-old male with past medical history of prostatitis and tobacco abuse, presenting with a periprostatic abscess in addition to a large rectal mass consistent with colonic adenocarcinoma and possible metastatic disease to the liver. Rectal adenocarcinoma: The patient initially presented with probable pyuria and was diagnosed with the urinary tract infection. However, imaging at that time showed a possible periprostatic abscess in addition to thickening of the wall of the colon concerning for possible GI neoplasm. He subsequently underwent flexible sigmoidoscopy on July 28, 2020, with the findings of a circumferential ulcerated mass extending from just past the anal verge to 16 cm past the anal verge. Biopsies of this mass were consistent with moderately differentiated colonic adenocarcinoma. At this time, he does have some faint ill-defined densities within the liver that are concerning for metastatic disease, now status post liver biopsy for the determination of possible metastasis. At this time, further GI workup is not indicated except for completion colonoscopy within the next 6 to 12 months after surgical resection of this rectal adenocarcinoma. RECOMMENDATIONS: 1. We would obtain staging imaging for evaluation of possible metastatic disease to include a CT scan of the chest, abdomen, and pelvis. 2. General Surgery Service has already been consulted for possible surgical resection. If there is presence of metastatic disease, then the patient will probably need Oncology Service involvement for possible chemotherapy or even need a neoadjuvant chemotherapy given this is the rectal adenocarcinoma. 3. Pain control per primary team. Given the diagnosis of rectal adenocarcinoma has been made, we would defer further management of this to the General Surgery and Oncology Services. We will sign off at this time. Please call with any questions. Job ID: [id number]
--- NOTE | 2020-07-29 23:31 | PRG ---
DATE OF SERVICE: 07/29/2020 Mr. Sanchez is feeling good today. He denies any abdominal pain, although he is little sore at the suprapubic catheter site. He has not had any fevers or chills. He is not having any nausea or vomiting. His catheter is draining well and he is tolerating his diet. His abdomen is completely soft and nontender. The suprapubic swelling has diminished. He has been afebrile with normal vital signs and no tachycardia, but his white count is elevated this morning at 21,000. H and H have been stable, however. His pathology from his rectal biopsies had already came back as invasive adenocarcinoma and I have discussed this case with Dr. Pimentel of Oncology. He will require chemotherapy and radiation therapy for the rectal cancer. He is still potentially curable with an isolated liver metastasis and CT-guided biopsy of the liver mass has been requested. If he does become a candidate for resection, I would recommend that this be done at a tertiary center by a surgical oncologist or colorectal specialist due to the possible need for resection of prostate or even part of the urethra; however, the fragments of tissue from his TURP did not show any direct invasion of the colonic adenocarcinoma, so hopefully this is just a perforated rectal cancer with secondary infection of the prostate as a result. The patient will require a MediPort for chemotherapy, but I am concerned about infectious risk given his UTI and prostatic abscess. Dr. Washington has requested a PICC line to be placed for long-term IV antibiotics and this can also be used for chemotherapy in the short term. Once his infectious problems are controlled, MediPort can be placed. We will need to monitor his white count and temperature, but I think that the elevated white count is mostly a reaction to his invasive procedures yesterday. Job ID: [id number]
[2020-07-30] MEDS: HYDROcodone/Acetaminophen 5/325 mg Tablet PO PRN ×3 (00:11→12:20)
[2020-07-30] MEDS: Piperacillin/Tazobactam 3.375 GM in Sodium Chloride 0.9% 100 ML IVPB SCH ×3 (00:12→11:09)
[2020-07-30 05:58] LABS: #Eosinphils 0.1 thou/uL (0.0-0.7); #Lymphocytes 1.2 thou/uL (1.20-3.40); #Monocytes 0.6 thou/uL (0.11-0.59); #Neutrophils 8.1 thou/uL (1.40-6.50); %Basophils 0.2 % (0.0-1.0); %Eosinophils 0.8 % (0.0-10.0); %Lymphocytes 12.3 % (21.0-51.0); %Monocytes 6.2 % (0.0-10.0); %Neutrophils 80.5 % (42.0-75.0); Hemoglobin 10.8 g/dL (14.0-18.0); Mean Corpuscular HGB CONC 32.1 g/dL (32.0-36.0); Mean Corpuscular Hemoglobin 28.6 pg (27.0-31.0); Mean Corpuscular Volume 89.2 fL (78.0-98.0); Mean Platelet Volume 6.5 fL (7.4-10.4); Platelet Count 315 thou/uL (130-400); RBC Distribution Width 12.9 % (11.5-14.5); Red Blood Cell (RBC) Count 3.76 mill/uL (4.70-6.10); White Blood Cell (WBC) Count 10.1 thou/uL (4.8-10.8)
[2020-07-30 06:16] LABS: Anion Gap 9 mmol/L (10-20); BUN (Urea Nitrogen) 12 mg/dL (8.4-25.7); Calc. Creatinine Clearance 159 mL/min (70-130); Calcium 7.3 mg/dL (7.8-10.44); Carbon Dioxide 24 mmol/L (22-29); Chloride 109 mmol/L (98-107); Estimated GFR-MDRD Greater than 90; Glucose 87 mg/dL (70-105); Potassium 4.2 mmol/L (3.5-5.1); Sodium 138 mmol/L (136-145)
[2020-07-30] MEDS: Sodium Chloride 0.9% 1,000 ML IV SCH ×2 (06:26→08:42)
--- NOTE | 2020-07-30 08:29 | PRG ---
DATE OF SERVICE: 07/30/2020 SUBJECTIVE: The patient without complaints, eating without significant issues. Denies abdominal pain, nausea, or vomiting. No significant hematuria. Wanting to go home. OBJECTIVE: VITAL SIGNS: Stable. He is afebrile. I's and O's 1500 in and 2950 out. He is negative 1.4 L. GENERAL: The patient is in no acute distress. ABDOMEN: Soft. No rigidity. No rebound. No significant tenderness. : Suprapubic tube is adequately secured, draining yellow turbid urine. The patient does have occasional discharge per urethra as expected given recent surgical intervention. EXTREMITIES: No cyanosis, clubbing, or edema. PERTINENT LABORATORY AND PATHOLOGY: White count 10, hemoglobin 10.8, platelet 315. BMP profile is within normal limits with creatinine 0.69. Hepatitis, COVID, HIV are negative. Blood culture one out of two, positive for gram-negative pardeep. Perirectal abscess cultures are pending with component of gram-negative pardeep, moderate gram-positive cocci in pairs. Vancomycin has been discontinued by Dr. Solano. Currently, the patient remains on Zosyn. IMPRESSION: 1. Mr. Sanchez is a 54-year-old male with recent diagnosis of invasive adenocarcinoma of the rectum. 2. Periprosthetic perirectal abscess. Postop day #2, status post TUR, transrectal ultrasound, needle aspiration of perirectal abscess, suprapubic tube. He underwent PICC line placement yesterday, as well as liver biopsy which results are pending. Medical Oncology, Infectious Disease consult reviewed. Regarding antibiotic regimen, vancomycin discontinued by Dr. Solano. Certainly, I will leave antibiotic regimen to Infectious Disease specialist, however, concerning as aspiration demonstrated component of gram-positive cocci. The patient remains surgically stable, requesting to be discharged home. I informed the patient that he will need approval from General Surgery, Infectious Disease, and Medical Service to be discharged. He is hemodynamically and surgically stable, and cultures are pending. The patient instructed regarding proper care for suprapubic tube as it is kinked and is closed. Chemo RT is planned at a later date. Pending liver biopsy. The patient is high risk for developing rectourethral, rectoprostatic fistula, as his invasive rectal cancer likely fistulizing resulting in periprosthetic perirectal abscess. Discussed with multiple subspecialist infectious disease general surgery and hospitalist he is clear from all specialist to be discharged with Leatha Ignacio instructed patient regarding suprapubic tube care. Has follow-up with me next week at 1 PM Job ID: [id number]
[2020-07-30] MEDS: Famotidine 20 MG TAB PO SCH (08:39)
--- NOTE | 2020-07-30 11:53 | PDOC.HOSPP ---
- Subjective Encounter Date: 07/30/20 Encounter Time: 10:00 Subjective: no abd pain or sob is ambulating in hallway wants to go home at bedside - Objective Vital Signs & Weight: Vital Signs (12 hours) Temp Pulse Resp BP Pulse Ox 07/30/20 07:41 98.2 F 71 18 127/76 97 07/30/20 04:00 98.7 F 70 18 136/83 97 07/30/20 00:00 98.6 F 63 18 126/79 98 Weight Weight 197 lb 15.954 oz I&O: 07/29/20 07/30/20 07/31/20 06:59 06:59 06:59 Intake Total 600 1500 Output Total 2400 2950 Balance -1800 -1450 Result Diagrams: 07/30/20 05:33 07/30/20 05:33 Hospitalist ROS - Medication Medications: Active Medications Generic Name Dose Route Start Last Admin Trade Name Freq PRN Reason Stop Dose Admin Hydrocodone Bitart/Acetaminophen 1 tab 07/27/20 17:54 07/30/20 08:41 Hydrocodone/Acetaminophen 5/325 Mg Tablet PO 1 tab Q4H PRN Administration Moderate Pain (4-6) Famotidine 20 mg 07/27/20 21:00 07/30/20 08:39 Famotidine 20 Mg Tab PO 20 mg BID KEVEN Administration Sodium Chloride 1,000 mls @ 125 mls/hr 07/27/20 18:00 07/30/20 08:42 Normal Saline 0.9% IV 1,000 mls .Q8H KEVEN Administration Piperacillin Sod/Tazobactam 100 mls @ 200 mls/hr 07/27/20 23:59 07/30/20 11:09 Sod 3.375 gm/ Sodium Chloride IVPB 100 mls Q6HR KEVEN Administration - Exam General Appearance: awake alert Eye: PERRL, anicteric sclera ENT: no oropharyngeal lesions, moist mucosa Neck: supple, no JVD Heart: RRR, no murmur Respiratory: no wheezes, no rales Gastrointestinal: soft, non-tender, non-distended, normal bowel sounds Extremities: no cyanosis, 1+ LE edema Neurological: cranial nerve grossly intact, no focal deficits Psychiatric: normal affect, A&O x 3 Hosp A/P (1) Adenocarcinoma of rectum Code(s): C20 - MALIGNANT NEOPLASM OF RECTUM Status: Acute (2) Abscess of prostate Code(s): N41.2 - ABSCESS OF PROSTATE Status: Acute (3) Hematuria Code(s): R31.9 - HEMATURIA, UNSPECIFIED Status: Acute (4) Tobacco abuse disorder Code(s): Z72.0 - TOBACCO USE Status: Chronic - Plan metastatic adenocarcinoma rectum with prostate abscess/spread plus 2 cm liver mass in left lobe hemostable s/p spc+, tur and rectosigmoidoscopy with biopsies 07/28/20 continue current meds, zosyn, vanc 1 of 2 blood cs are growing gm -ve paredep, prostate abscess fluid culture is pending plan is for ceftriaxone 2g iv daily with oral flagyl tid till 08/29/20 he has picc line await cm to arrange antibiotics, may dc home if its arranged
--- NOTE | 2020-07-30 13:15 | PDOC.MOPN ---
Interval History: no pain, eating well. wants to go home. - Vital Signs Vital Signs: Vital Signs (12 hours) Temp Pulse Resp BP Pulse Ox 07/30/20 07:41 98.2 F 71 18 127/76 97 07/30/20 04:00 98.7 F 70 18 136/83 97 Weight Weight 197 lb 15.954 oz - Physical Exam General: Alert, Oriented x3, No acute distress HEENT: Atraumatic, PERRLA, EOMI, Mucous membr. moist/pink Lungs: Clear to auscultation, Normal air movement Cardiovascular: Regular rate, Normal S1, Normal S2, No murmurs, Gallops, Rubs Abdomen: Normal bowel sounds, Soft, No tenderness, No hepatospenomegaly, No masses Neurological: Normal gait, Normal speech, Strength at 5/5 X4 ext, Normal tone, S ensation intact, Cranial nerves 3-12 NL, Reflexes 2+ - Labs Result Diagrams: 07/30/20 05:33 07/30/20 05:33 Lab results: Laboratory Results - last 24 hr 07/30/20 05:33: WBC 10.1, RBC 3.76 L, Hgb 10.8 L, Hct 33.6 L, MCV 89.2, MCH 2 8.6, MCHC 32.1, RDW 12.9, Plt Count 315, MPV 6.5 L, Neutrophils % 80.5 H, Lymphocytes % 12.3 L, Monocytes % 6.2, Eosinophils % 0.8, Basophils % 0.2, Neutrophils # 8.1 H, Lymphocytes # 1.2, Monocytes # 0.6 H, Eosinophils # 0.1, Basophils # 0.0 07/30/20 05:33: Sodium 138, Potassium 4.2, Chloride 109 H, Carbon Dioxide 24, Anion Gap 9 L, BUN 12, Creatinine 0.69 L, Estimated GFR (MDRD) Greater than 90, Glucose 87, Calcium 7.3 L 07/29/20 17:09: Vancomycin Trough 13.3 Status: lab reviewed by me A/P - Problem (1) Adenocarcinoma of rectum Current Visit: Yes Code(s): C20 - MALIGNANT NEOPLASM OF RECTUM Status: Acute - Plan Plan: 1. rectal biopsy confirmed adenocarcinoma, await liver biopsy results 2. has spoke with financial counselor 3. follow-up next wee with Dr. Pimentel to discuss plan.
[2020-07-30 14:40] VITALS: BP 123/74; TEMP 98.3
[2020-07-31] MEDS ORDERED: cefTRIAXone\\ROCEPHIN 2 GM in Sodium Chloride 0.9% 100 ML IVPB SCH (14:00)
--- NOTE | 2020-08-01 18:02 | DIS ---
DATE OF ADMISSION: 07/27/2020 DATE OF DISCHARGE: 07/30/2020 DISCHARGE DISPOSITION: Home. PRIMARY DISCHARGE DIAGNOSES: Adenocarcinoma of rectum; prostatic abscess; hematuria, resolved; tobacco abuse; 2 cm liver mass in the left lobe, pending biopsy results. PROCEDURES DONE DURING HOSPITALIZATION: The patient has had placement of suprapubic catheter with drainage of his prostate abscess and rectosigmoidoscopy with biopsies done on 07/28/2020. The above procedures were done by Dr. Washington for Urology and Dr. Sandro Viera for Gastroenterology. CT of the abdomen and pelvis with contrast done showed large intraprostatic abscess. This abscess communicates with a 3 x 2.5 x 4.5 cm mass between the right side of the rectum and right posterior aspect of the prostate abscess. There was circumferential mural thickening suspicious for rectal cancer, suspicious 2 cm liver metastasis in left lobe of liver. Chest x-ray done showed no acute cardiopulmonary process. Prostate tissue transurethral resection showed findings of benign prostatic hyperplasia. No atypia or malignancy was identified in the prostate sample. Rectal biopsies revealed invasive colonic adenocarcinoma, moderately differentiated. He has had a CT- guided liver biopsy done on 07/29/2020 by Interventional Radiology. The histopathology of this biopsy is pending at the time of this dictation. Blood cultures 1 of 2 grew Bacteroides fragilis. It was beta lactamase positive. Prostate abscess culture grew normal skin honorio and Mixed anaerobes were present, isolation is in progress. Hemoglobin and hematocrit 10 and 33, platelet count 315 on the day of discharge, white count of 10. BUN 12, creatinine 0.6 on the day of discharge. Carcinoembryonic antigen 61. Free PSA 0.25, percent free PSA 9.3, total PSA 2.7. COVID-19 PCR was not detected on 07/27/2020. HIV 1 and 2 antigen and antibody nonreactive. Hep C antibody nonreactive. Hepatitis B surface antigen nonreactive. DISCHARGE MEDICATIONS: 1. Ceftriaxone 2 g IV for 30 days daily. 2. Flagyl 500 mg p.o. three times daily for 30 days. 3. Oxybutynin 5 mg p.o. q.8 hourly p.r.n. 4. Omeprazole 20 mg p.o. daily. 5. Senokot-S two tablets p.o. twice daily. 6. Ultram p.r.n. for pain four times daily. ALLERGIES: NO KNOWN DRUG ALLERGIES. INPATIENT CONSULT: Dr. Ebenezer Boateng for Gastroenterology, Dr. Washington for Urology, Dr. Solano for Infectious Disease, Dr. Nehemias Pimentel/Stephanie Moseley for Oncology, Dr. Nevarez for General Surgery. DISCHARGE PLAN: The patient to follow up with Dr. Nehemias Pimentel on 08/05/2020 at 1:45 p.m. He needs to follow up with Dr. Washington on the same day at 1 p.m.; Dr. Castillo, his primary care physician in 1 week. BRIEF COURSE DURING HOSPITALIZATION: The patient initially was admitted on the with complaints of blood tinged urine. His initial CAT scan revealed possible prostatic abscess with circumferential thickening of the rectum. In view of this, he has had consultation with Dr. Washington for Urology and Dr. Ebenezer Boateng for Gastroenterology. The patient has had both rectosigmoidoscopy with unprepped colon and fine-needle aspiration of prostate biopsy with TURP done at the same setting. This was done by Dr. Washington and Dr. Sandro Viera. The rectal biopsy has come back positive for adenocarcinoma as mentioned above. He has had 2 cm isolated left lobe liver lesion as well, which has been biopsied by Interventional Radiology. The histopathology of this mass is pending at the time of this dictation. He has had a suprapubic catheter placed and the patient is comfortable using it. He has outpatient appointments set up with multiple specialists. His further surgical treatment for his condition depends on the liver mass histopathology. Likely, the patient will need higher level of care in [place] with an oncologic surgeon. These referrals and further treatments will be tailored when he follows up with Dr. Nehemias Pimentel. The patient's blood cultures grew Bacteroides fragilis 1/2 and has been placed on ceftriaxone and Flagyl for 30 days. He has had a PICC line placed. Case Management was consulted for help with setting up outpatient antibiotic, which has been done on the . He has been cleared for discharge by Oncology. Please note, the patient is to follow up with Dr. Nehemias Pimentel to obtain results of his liver biopsy and to discuss further care for his cancer. During the course of his stay, Dr. Nevarez, general surgeon, had also evaluated the patient here. Please see a [id number] documentation for the day of discharge on [employer]. Job ID: [id number] [email or web address]
--- NOTE | 2020-08-02 08:30 | DIS ---
DATE OF ADMISSION: 07/27/2020 DATE OF DISCHARGE: 07/30/2020 PRIMARY DISCHARGE DIAGNOSES: Invasive adenocarcinoma with moderate differentiation of rectum, prostatic abscess, status post transurethral resection, hematuria on arrival resolved, tobacco abuse, gram-negative bacteremia with unknown species at the time of discharge. PROCEDURES DONE DURING HOSPITALIZATION: Histopathology from prostate tissue shows benign prostatic hyperplasia. No atypia or malignancy was identified. Rectal biopsy showed invasive colonic adenocarcinoma with moderate differentiation. Abdominal and pelvic CAT scan done on the day of admission showed large amount of fluid within the pelvic cavity and abdominal cavity, mostly retroperitoneal. There is a new suprapubic catheter with balloon in the collapsed urinary bladder on this CAT scan. This CAT scan was done on 07/28/2020. CAT scan done on 07/27/2020 showed large intraprostate abscess. The abscess was communicating with a 3 x 2.5 x 4.5 cm mass between the right side of the rectum and the right posterior aspect of the prostate. This mass may represent a malignant neoplastic tumor. More superiorly in the rectum, there was circumferential mural thickening suspicious for rectal cancer. There is a 2 cm liver lesion seen suspicious for metastasis in the left lobe of liver. Flexible sigmoidoscopy done by Dr. Sandro Viera on 07/28/2020 showed ulcerated rectal mass from just above the anal verge to 16 cm circumferentially. Multiple biopsies were taken. Unremarkable sigmoid mucosa just above the mass. This exam was unprepped and hence, the area proximal to the mass was not well visualized. He had cystoscopy with transurethral resection of prostate, transurethral unroofing of abscess. A 20-Mongolian [place] tip suprapubic tube placement via ultrasound guidance, dilatation of the suprapubic tube tract, transrectal ultrasound of prostate, transrectal needle aspiration of perirectal abscess. A 20-Mongolian three-way indwelling urethral Ortiz catheter was also placed. All of these procedures were done by Dr. Washington on 07/28/2020. The patient has had CT-guided liver biopsy done on 07/29/2020 by Interventional Radiology. Histopathology of this liver mass is pending at the time of discharge. Blood cultures 1 of 2 grew gram-negative pardeep with species identification pending at the time of discharge. There is possible anaerobes present as well. Perirectal abscess/prostate in the prostate area. Cultures have not grown any aerobic growth at 36 hours, possible anaerobes present and isolation is in progress at the time of discharge. He had a white count of 10 on the day of discharge, H and H 10 and 33, platelet count 315. BUN 12, creatinine 0.6. Carcinoembryonic antigen levels were elevated at 61.02 ng/mL, free PSA 0.25 ng/mL, total PSA was 2.7. BNP 120. Albumin 3.3. Liver enzymes were within normal limits. COVID-19 PCR was not detected on 07/27/2020. Hep C antibody nonreactive. Hepatitis B surface antigen nonreactive. HIV 1 and 2 nonreactive. Hepatitis B core IgM antibody nonreactive. DISCHARGE MEDICATIONS: 1. Ceftriaxone 2 g IV daily until 29 of August. 2. Flagyl 500 mg p.o. 3 times daily until 29 of August. 3. Oxybutynin 5 mg p.o. q.8 hourly p.r.n. 4. Omeprazole 20 mg p.o. daily. 5. Senokot-S 2 tablets p.o. twice daily. 6. Ultram 50 mg p.o. 4 times daily p.r.n. for pain. ALLERGIES: NO KNOWN DRUG ALLERGIES. INPATIENT CONSULT: 1. Dr. Nevarez for General Surgery. 2. Dr. Sandro Viera for Gastroenterology. 3. Dr. Linda Washington for Urology. 4. Dr. Solano for Infectious Disease. 5. Stephanie Moseley/Nehemias Pimentel for Oncology. DISCHARGE PLAN: The patient to follow up with Dr. Nehemias Pimentel on 08/05/2020 at 1:45 p.m., Dr. Washington on 08/05/2020 at 1:00 p.m., primary care physician, Dr. Castillo in 1 week. BRIEF COURSE DURING HOSPITALIZATION: The patient initially got admitted on the 27 of July after an episode of hematuria. Initial CAT scan was suspicious for rectal mass with abscess around the prostate or in the prostate. He has had pancultures drawn and was on broad-spectrum IV antibiotics. Mr. Sanchez has had consultation with Dr. Linda Washington for Urology, Dr. Sandro Viera for Gastroenterology. The patient has had sigmoidoscopy done which revealed circumferential rectal mass and multiple biopsies were obtained. This has come back positive for invasive adenocarcinoma with moderate differentiation. The patient has had urologic procedure done as mentioned above with needle aspiration of the abscess done in the same setting by Dr. Washington. The patient's one of two blood cultures grew gram-negative pardeep and this was on 07/27/2020 and species identification is still pending. His prostate abscess culture is still pending, but he is also growing an anaerobe with identification pending at present. His CAT scan for the abdomen also revealed a 2 cm possible metastasis in the left lobe of liver. In view of this, a general surgical consultation with Dr. Nevarez was requested. Per Dr. Nevarez's note, the patient likely needs oncologic surgeon for management of both the liver mass and the rectal mass. He has had a suprapubic catheter placed. Prior to discharge, he is ambulating and eating well. The patient is currently unfunded and has met with financial counselor and plans are on to have followup appointments with various specialists as mentioned above. Likely once all the histopathology samples come in, he will have either referral to [facility] for surgical treatment versus will be treated locally based on the findings. He has been cleared by various specialists for discharge today. Please see a [id number] documentation for the day of discharge on [employer]. Job ID: [id number]
--- NOTE | 2020-08-02 11:37 | CT ---
"PRELIMINARY REPORT" CT-guided right hepatic lobe lesion biopsy INDICATION: History of rectal adenocarcinoma with concern for hepatic metastatic disease. COMPARISON: CT abdomen and pelvis dated 07/28/2020 and 07/27/2020. TECHNIQUE: Informed consent was obtained. Preprocedure CT images were obtained of the right upper eloy drant for guidance purposes only. Site overlying the suspicious hypodense lesion in the right hepatic lobe was marked. The site was prepped and draped in the usual sterile fashion. The patient un derwent conscious sedation under guidance of the radiology nurse and received 1 mg of IV Versed. Buffered 1% lidocaine was administered to the overlying subcutaneous tissues. A small dermatotomy was made. A 17-gauge trocar needle was guided down to the lesion. Two separate core samples were obtained utilizing an 18-gauge core biopsy device. Pathology was on-site to verify adequacy of tissue sampling. The patient tolerated the biopsy without difficulty. Postprocedural images demonstrate no significant intraparenchymal hemorrhage. Small amount of gas is seen overlying the right hepatic m argin from the injection site. IMPRESSION: Successful CT-guided right hepatic lesion core biopsy. Transcribed Date/Time: 08/02/2020 11:37 AM
== END 2020-07-30 14:49 | disposition home or self-care (01) | DRG 345 ==
LOC: ERS 13:41 → T4-A 16:19 → ERS 17:05
PROVIDERS: ADMIT Internal Medicine; ATTEND Internal Medicine
PROC: 0D9P7ZZ Drainage of Rectum, Via Natural or Artificial Opening (ICD-10-PCS; principal; 2020-07-28)
PROC: 0DBP8ZX Excision of Rectum, Via Natural or Artificial Opening Endoscopic, Diagnostic (ICD-10-PCS; 2020-07-28)
PROC: 0VB08ZZ Excision of Prostate, Via Natural or Artificial Opening Endoscopic (ICD-10-PCS; 2020-07-28)
PROC: 0T9B70Z Drainage of Bladder with Drainage Device, Via Natural or Artificial Opening (ICD-10-PCS; 2020-07-28)
PROC: 02HV33Z Insertion of Infusion Device into Superior Vena Cava, Percutaneous Approach (ICD-10-PCS; 2020-07-29)
PROC: B548ZZA Ultrasonography of Superior Vena Cava, Guidance (ICD-10-PCS; 2020-07-29)
PROC: 0FB13ZX Excision of Right Lobe Liver, Percutaneous Approach, Diagnostic (ICD-10-PCS; 2020-07-29)
DX: C20 Malignant neoplasm of rectum (principal); N41.2 Abscess of prostate; K61.1 Rectal abscess; C78.7 Secondary malignant neoplasm of liver and intrahepatic bile duct; R78.81 Bacteremia; N40.0 Benign prostatic hyperplasia without lower urinary tract symptoms; F17.210 Nicotine dependence, cigarettes, uncomplicated; R31.9 Hematuria, unspecified; I10 Essential (primary) hypertension; Z20.828 Contact with and (suspected) exposure to other viral communicable diseases; B96.89 Other specified bacterial agents as the cause of diseases classified elsewhere
CPT/HCPCS: 36415; 36569; 47000; 71045; 72193; 74176; 74177; 74178; 77012; 80048; 80053; 80074; 80202; 81003; 81015; 82378; 82550; 83605; 83690; 83735; 83880; 84153; 84154; 84484; 85025; 85610; 85730; 87040; 87070; 87076; 87086; 87149; 87205; 87389; 87635; 88305; 88307; 88341; 88342; 93005; 96365; 96367; C1751; J0696; J1100; J1644; J2250; J2405; J2543; J2704; J3010; J3370; J3490; J7030; Q9967; U0003

== ENCOUNTER 2020-08-24 06:50 | Outpatient (CLI) | payer SELFPAY ==
[2020-08-24 12:07] LABS: #Eosinphils 0.3 10x3/uL (0.0-0.5); #Monocytes 0.6 10x3/uL (0.0-1.1); #Neutrophils 5.5 10x3/uL (1.5-8.4); %Basophils 0.5 % (0.0-2.0); %Eosinophils 3.4 % (0.0-6.0); %Lymphocytes 18.8 % (18.0-47.0); %Monocytes 7.2 % (0.0-10.0); %Neutrophils 69.6 % (40.0-75.0); Hemoglobin 11.7 g/dL (14.0-18.0); Mean Corpuscular HGB CONC 31.4 G/DL (32.0-36.0); Mean Corpuscular Hemoglobin 26.5 PG (27.0-33.0); Mean Corpuscular Volume 84.6 fl (80.0-100.0); Platelet Count 270 10x3/uL (130-400); RBC Distribution Width 14.6 % (11.5-14.5); Red Blood Cell (RBC) Count 4.41 10x6/uL (4.40-5.80); White Blood Cell (WBC) Count 7.9 10x3/uL (4.5-11.0)
[2020-08-24 12:22] LABS: Anion Gap 16 mmol/L (10-20); BUN (Urea Nitrogen) 16 mg/dL (8.4-25.7); Calc. Creatinine Clearance 0 mL/min (70-130); Carbon Dioxide 24 mmol/L (22-29); Chloride 103 mmol/L (98-107); Estimated GFR-MDRD Greater than 90; Glucose 91 mg/dL (70-105); Potassium 4.7 mmol/L (3.5-5.1); Sodium 138 mmol/L (136-145)
[2020-08-24 16:30] LABS: Hemoglobin A1c 4.8 % (4.0-6.0)
--- NOTE | 2020-08-24 23:46 | EKG ---
Test Reason : PREOP Blood Pressure : / mmHG Vent. Rate : 076 BPM Atrial Rate : 076 BPM P-R Int : 142 ms QRS Dur : 102 ms QT Int : 398 ms P-R-T Axes : 047 077 068 degrees QTc Int : 447 ms Normal sinus rhythm Normal ECG When compared with ECG of 27-JUL-2020 13:51, Vent. rate has decreased BY [address] elevation now present in Inferior leads ST no longer depressed in Anterior leads Nonspecific T wave abnormality no longer evident in Inferior leads T wave amplitude has increased in Anterolateral leads Confirmed by Rashid ELLIS ([id number]) on 08/24/2020 11:46:08 PM Referred By: Carolina VIVEROS Confirmed By:Rashid ELLIS
[2020-08-25 12:56] LABS: SARS-CoV-2 MS2 Positive; SARS-CoV-2 N Gene Negative; SARS-CoV-2 S Gene Negative; SARS-CoV-2 by NAA Not Detected (NotDetected); SARS-CoV-2 orf1ab Negative
== END 2020-08-24 06:51 | disposition home or self-care (01) ==
LOC: LABBT 06:50
PROVIDERS: ATTEND Surgery
DX: Z01.818 Encounter for other preprocedural examination (principal); C20 Malignant neoplasm of rectum; Z20.828 Contact with and (suspected) exposure to other viral communicable diseases
CPT/HCPCS: 80048; 83036; 85025; 87635; 93005; 93010; U0003

== ENCOUNTER 2020-08-24 11:30 | Inpatient (IN) | payer SELFPAY ==
[2020-08-26 14:21] VITALS: BMI 29.5
[2020-08-27] MEDS ORDERED: Lidocaine 1% w/Epinephrine 1:100K 20 ML VIAL ONE (09:30)
[2020-08-27] MEDS ORDERED: Lidocaine 2% PF 5 ML VIAL ONE (09:30)
[2020-08-27] MEDS ORDERED: Bupivacaine 0.25% HCL 30 ML VIAL ONE (09:30)
[2020-08-27] MEDS ORDERED: cefOXitin Sodium/Dextrose 2 GM/50 ML BAG ONE (09:34)
[2020-08-27] MEDS ORDERED: Fentanyl 100 MCG/2 ML VIAL ONE ×3 (09:36→13:20)
[2020-08-27] MEDS ORDERED: SUGAMMADEX SODIUM 200 MG/2 ML VIAL ONE (09:36)
[2020-08-27] MEDS ORDERED: Midazolam HCl 2 mg/2 ml Vial ONE (10:04)
[2020-08-27] MEDS ORDERED: Albuterol Sulfate HFA (OR ONLY) ONE ×2 (10:18→10:22)
[2020-08-27] MEDS ORDERED: Rocuronium Bromide 10 MG/ML (10ML VIAL) ONE (10:22)
[2020-08-27] MEDS ORDERED: Bupivacaine HCl 0.5%/Epinephrine 1:200,000/PF 30 ml Vial ONE (10:22)
[2020-08-27] MEDS ORDERED: PROPOFOL 200 MG/20 ML VIAL ONE (10:22)
[2020-08-27] MEDS ORDERED: Lidocaine 1% PF 5 ML VIAL ONE (10:22)
[2020-08-27] MEDS ORDERED: Succinylcholine 200 MG/10 ml SYRINGE FS ONE (10:22)
[2020-08-27] MEDS ORDERED: Esmolol 100 MG/10 ML VIAL ONE (10:22)
[2020-08-27] MEDS ORDERED: PHENYLEPHRINE-NS 100 MCG/ML 10 ML SYRINGE ONE (10:22)
[2020-08-27] MEDS ORDERED: Morphine Sulfate 2 MG/ML SYRINGE SLOW IVP PRN (11:45)
[2020-08-27] MEDS ORDERED: Promethazine HCl 25 MG/ML VIAL SLOW IVP PRN (11:45)
[2020-08-27] MEDS ORDERED: Promethazine HCl 25 MG/ML VIAL IM PRN ×2 (11:45→13:04)
[2020-08-27] MEDS ORDERED: Ketorolac Tromethamine 30 MG/ML VIAL IVP PRN (11:45)
[2020-08-27] MEDS ORDERED: PACU-Morphine 4MG/ML VIAL SLOW IVP PRN (11:45)
[2020-08-27] MEDS ORDERED: Meperidine HCl/PF 25 MG/ML VIAL SLOW IVP PRN (11:45)
[2020-08-27] MEDS ORDERED: Ondansetron HCl/PF 4 MG/2 ML Vial IVP PRN (11:45)
[2020-08-27] MEDS ORDERED: HYDROmorphone 2 MG/ML VIAL SLOW IVP PRN (11:45)
[2020-08-27] MEDS ORDERED: Ondansetron PF 4 MG/2 ML Vial IVP PRN (13:04)
[2020-08-27] MEDS ORDERED: hydrALAZINE 20 MG/ML VIAL SLOW IVP PRN (13:04)
[2020-08-27] MEDS ORDERED: Morphine 2 MG/ML VIAL SLOW IVP PRN (13:04)
[2020-08-27] MEDS ORDERED: Morphine 4 MG/ML VIAL SLOW IVP PRN (13:04)
[2020-08-27] MEDS ORDERED: Morphine 4 MG/ML VIAL ONE (13:40)
--- NOTE | 2020-08-27 14:03 | RAD ---
EXAM: CHEST ONE VIEW HISTORY: Post Mediport insertion. COMPARISON: 07/27/2020 FINDINGS: There has been interval placement of a left internal jugular vein Mediport catheter with tip overlyin g the proximal SVC. Left-sided PICC line is in place and also overlies the proximal SVC. The cardiac silhouette and pulmonary vasculature are within normal limits for the portable technique of the study. The lungs are clear. There is a calcified pleural-based plaque again seen at the medial right lung base The osseous structures are intact. IMPRESSION: 1. Left-sided Mediport catheter in place without evidence of pneumothorax or effusion. 2. Left-sided PICC line.
--- NOTE | 2020-08-27 17:26 | PDOC.OP ---
Operative Note - Operative Note Operative Note: PROCEDURE: Left internal jugular MediPort placement with ultrasound and fluoroscopic guidance, laparoscopic sigmoid colostomy. DATE OF PROCEDURE: 08/27/2020 SURGEON: Lauren Nevarez M.D. PREOPERATIVE DIAGNOSIS: Rectal cancer POSTOPERATIVE DIAGNOSIS: Rectal cancer HISTORY: Patient has been diagnosed with cancer perforated into the perirectal tissues with prostatic abscess creation. Chemotherapy has been recommended and a Mediport has been requested for this. Due to ongoing infection risk diverting colostomy has also been recommended. OPERATIVE PROCEDURE IN DETAIL: After informed consent was obtained and appropriate preoperative antibiotics administered, the patient was taken to the operating room and placed in supine position and monitored anesthesia care was administered. The patient was then placed in Trendelenburg position and the left subclavian vein attempted to be accessed by the standard approach. There is very little space between the clavicle and the rib and the vein could not be accessed on multiple attempts so the decision was made to place the Mediport in the left internal jugular location. Patent compressible left internal jugular vein accessed easily on the first attempt under direct ultrasound guidance with excellent flow of dark venous non-pulsatile blood. A wire threaded easily and was confirmed to be in the compressible vein by ultrasound and with the tip in the superior vena cava by fluoroscopy. Additional local anesthesia was infused to the skin and subcutaneous tissues of the left neck and chest. A skin incision was made on the left chest and a subcutaneous pocket developed inferiorly. A Mediport was obtained and confirmed to fit in the subcutaneous pocket. This was secured inferiorly to the pectoralis fascia with a Prolene suture, which was clamped, but not tied. Mediport tubing was then tunneled from the chest to the left IJ access site subcutaneously. The dilator and sheath were then placed over the wire and the dilator and wire removed leaving the sheath in place. The clamped MediPort tubing was tunneled through the sheath, which was then split and removed leaving the MediPort tubing in place. The tubing was adjusted until the tip was confirmed by fluoroscopy to be in the superior vena cava just above the atrium. The tubing was clamped at the skin level and cut and the tubing secured to the port, which was then placed in the subcutaneous pocket. The previously placed suture was secured and two additional sutures were placed to fix the port in place within the pocket. The port was aspirated with the Soto needle and had excellent flow of dark venous non-pulsatile blood and easily flushed without resistance. The subcutaneous tissues were closed with a running Monocryl suture, following which the skin was closed with a running subcuticular Monocryl suture. Dermabond dressings were placed. The course of the catheter was confirmed by fluoroscopy to be smooth with the tip appropriately located in the superior vena cava. Attention was then turned to creation of the colostomy. The patient was prepped and draped in standard sterile fashion and local anesthesia infused at the level of the umbilicus. The fascia was elevated and a Veress needle placed into the abdominal cavity without difficulty. Opening pressure was less than 5 and carbon dioxide gas easily insufflated to an intra-abdominal pressure 15 which the patient tolerated well. The Veress needle was withdrawn and a [place] port advanced under direct vision into the abdominal cavity which was carefully examined. There was no evidence of Veress needle or trocar injury. No significant adhesions. Excellent incorporation of the mesh at the left inguinal hernia site with no residual hernia. Local anesthesia was infused to the skin and subcutaneous tissues overlying the rectus sheath in the left lower quadrant at the site of the planned colostomy. Trocar was placed under direct laparoscopic vision and the sigmoid colon identified. The sigmoid colon was very redundant and easily reached to the abdominal wall. A 12 mm trocar was placed in the right lower quadrant under direct laparoscopic vision and a window created through the mesentery using the LigaSure. Laparoscopic stapler was placed across the sigmoid colon which was divided. The end was grasped and drawn up to the anterior abdominal wall at the planned colostomy location without difficulty. A circumferential skin incision was made around the 5 mm port in the left lower quadrant and dissection carried down to the rectus sheath which was incised. The underlying muscles were split and the posterior sheath identified and incised. The tract was dilated and the colon easily brought out through this site taking care to maintain correct orientation. The sigmoid colon was carefully examined laparoscopically to confirm that the orientation was correct. The colon was secured to the posterior rectus sheath in 4 locations with 0 Vicryl suture and to the anterior rectus sheath at 4 locations with 0 Vicryl suture. The 12 mm port was then removed under laparoscopic vision and the fascia closed with 0 Vicryl suture on a [place] needle with excellent technical result. Carbon dioxide gas was allowed to desufflate through the umbilical trocar which was then removed. The laparoscopic sites were closed with 4-0 subcuticular Monocryl sutures and Dermabond dressings were applied. The colostomy was then matured. The staple line was excised and everting [place] sutures placed at 4 quadrants approximating the full-thickness of the colon edge to [place] sutures proximally and then to the dermis. Intervening sutures were then placed circumferentially securing the full-thickness of the colon edge to the dermis. The colostomy was palpated and was widely patent through the level of the fascia. A colostomy appliance was placed and the patient was taken back to recovery in good condition. Estimated blood loss was minimal. There were no complications. There were no specimens.
[2020-08-27] MEDS ORDERED: cefOXitin 2 GM in Sodium Chloride 0.9% 100 ML IVPB SCH (18:00)
[2020-08-27] MEDS: cefOXitin Sodium/Dextrose,Iso 2 GM in Premix Bag 1 BAG IVPB SCH ×2 (18:51→23:55)
[2020-08-27] MEDS: D5 1/2 NS w/20 mEq KCL 1,000 ML IV SCH ×3 (19:42→23:54)
[2020-08-27] MEDS: Famotidine 20 MG TAB PO SCH (19:46)
[2020-08-27] MEDS: Famotidine/PF 20 mg/2ml Vial SLOW IVP SCH (19:49)
[2020-08-28 04:19] LABS: #Eosinphils 0.2 thou/uL (0.0-0.7); #Lymphocytes 1.4 thou/uL (1.20-3.40); #Monocytes 0.6 thou/uL (0.11-0.59); #Neutrophils 5.1 thou/uL (1.40-6.50); %Basophils 0.5 % (0.0-1.0); %Eosinophils 2.7 % (0.0-10.0); %Lymphocytes 18.9 % (21.0-51.0); %Monocytes 7.8 % (0.0-10.0); Hemoglobin 10.7 g/dL (14.0-18.0); Mean Corpuscular HGB CONC 32.3 g/dL (32.0-36.0); Mean Corpuscular Hemoglobin 27.6 pg (27.0-31.0); Mean Corpuscular Volume 85.5 fL (78.0-98.0); Mean Platelet Volume 6.9 fL (7.4-10.4); Platelet Count 232 thou/uL (130-400); Red Blood Cell (RBC) Count 3.86 mill/uL (4.70-6.10); White Blood Cell (WBC) Count 7.3 thou/uL (4.8-10.8)
[2020-08-28 04:41] LABS: Anion Gap 7 mmol/L (10-20); BUN (Urea Nitrogen) 8 mg/dL (8.4-25.7); Calc. Creatinine Clearance 163 mL/min (70-130); Calcium 7.9 mg/dL (7.8-10.44); Carbon Dioxide 31 mmol/L (22-29); Chloride 104 mmol/L (98-107); Estimated GFR-MDRD Greater than 90; Glucose 99 mg/dL (70-105); Potassium 4.6 mmol/L (3.5-5.1); Sodium 137 mmol/L (136-145)
[2020-08-28] MEDS: Famotidine 20 MG TAB PO SCH ×2 (08:53→20:05)
--- NOTE | 2020-08-28 08:53 | PRG ---
DATE OF SERVICE: 08/28/2020 SUBJECTIVE: Mr. Sanchez is postoperative day #1 from laparoscopic colostomy creation per Dr. Nevarez. He is resting in bed comfortably. His primary complaint is that he is hungry. He notes minimal appropriate discomfort. OBJECTIVE: VITAL SIGNS: He is afebrile. Pulse is 80, blood pressure is 126/81. LUNGS: Coarse upper airway sounds secondary to chronic tobacco related lung disease. HEART: Regular rate and rhythm. ABDOMEN: Soft with normoactive bowel sounds. Laparoscopic incisions are nicely healed and ostomy appears to be viable in the left abdomen. LABORATORY DATA: His basic metabolic panel and CBC are essentially unremarkable. He has mild anemia with a hemoglobin of 10.7. This is down from 11.7 four days ago. This is certainly accounted for by his intraoperative and postoperative hydration. ASSESSMENT AND PLAN: The patient is doing well following laparoscopic colostomy creation. They tell me that they have no insurance and therefore home health nursing will likely be difficult or impossible to arrange. I will therefore initiate instruction per the ostomy nurse here in the hospital to educate the patient and his family, so that they may be safely discharged and able to care for the colostomy themselves. I will advance his diet and discontinue his IV fluid and hopefully he will be ready for discharge tomorrow. Job ID: [id number]
[2020-08-28] MEDS: Enoxaparin Sodium 40 MG/0.4 ML SYRINGE SC SCH (08:54)
[2020-08-28] MEDS: Famotidine/PF 20 mg/2ml Vial SLOW IVP SCH ×2 (08:58→20:03)
[2020-08-28] MEDS: HYDROcodone/Acetaminophen 7.5/325 mg Tablet PO PRN ×4 (09:25→20:08)
[2020-08-29] MEDS: HYDROcodone/Acetaminophen 7.5/325 mg Tablet PO PRN ×2 (06:35→11:11)
--- NOTE | 2020-08-29 08:03 | PRG ---
DATE OF SERVICE: 08/29/2020 SUBJECTIVE: Mr. Sanchez is postoperative day #2 from laparoscopic colostomy creation per Dr. Nevarez. This was performed for problems related to anorectal cancer. He has no complaints today. He tells me he has been eating well and colostomy function has been good. He had colostomy training yesterday. He is voiding through a suprapubic catheter. I am told that he is ambulating. PHYSICAL EXAMINATION: VITAL SIGNS: He is afebrile. Vital signs are within normal limits. LUNGS: Still have chronic upper airway changes related to his chronic pulmonary issues associated with tobacco use. ABDOMEN: Soft, nontender, nondistended. Ostomy is viable and functioning well. LABORATORY DATA: None. ASSESSMENT: The patient is doing well two days after laparoscopic colostomy creation. He has already had colostomy training. He will be discharged today. Hopefully, we will be able to provide him with some supplies to get him started as far as caring for his new colostomy. He will follow up with Dr. Nevarez in 2 weeks. I gave him a discharge prescription for tramadol. Job ID: [id number]
[2020-08-29] MEDS: Famotidine 20 MG TAB PO SCH (08:54)
[2020-08-29] MEDS: Famotidine/PF 20 mg/2ml Vial SLOW IVP SCH (11:14)
[2020-08-29 11:15] VITALS: BP 129/73; TEMP 98.2
[2020-08-29] MEDS: Enoxaparin Sodium 40 MG/0.4 ML SYRINGE SC SCH (11:20)
== END 2020-08-29 12:28 | disposition home or self-care (01) | DRG 329 ==
LOC: SURG A 08-27 08:41 → EDSTATUS 08-27 11:30 → SURG A 08-27 14:02
PROVIDERS: ADMIT Surgery; ATTEND Surgery
PROC: 0D1N4Z4 Bypass Sigmoid Colon to Cutaneous, Percutaneous Endoscopic Approach (ICD-10-PCS; principal; 2020-08-27)
PROC: 0JH60WZ Insertion of Totally Implantable Vascular Access Device into Chest Subcutaneous Tissue and Fascia, Open Approach (ICD-10-PCS; 2020-08-27)
PROC: 02HV33Z Insertion of Infusion Device into Superior Vena Cava, Percutaneous Approach (ICD-10-PCS; 2020-08-27)
PROC: B518ZZA Fluoroscopy of Superior Vena Cava, Guidance (ICD-10-PCS; 2020-08-27)
PROC: B548ZZA Ultrasonography of Superior Vena Cava, Guidance (ICD-10-PCS; 2020-08-27)
DX: C20 Malignant neoplasm of rectum (principal); K63.1 Perforation of intestine (nontraumatic); N41.2 Abscess of prostate; C78.7 Secondary malignant neoplasm of liver and intrahepatic bile duct; Z20.828 Contact with and (suspected) exposure to other viral communicable diseases; Z79.899 Other long term (current) drug therapy
CPT/HCPCS: 71045; 80048; 85025; C1788; J0694; J1642; J1650; J2001; J2250; J2270; J2405; J2704; J3010; J3480; S0020; S0028

== ENCOUNTER 2020-08-27 07:19 | Outpatient (CLI) | payer OTHER, SELFPAY ==
--- NOTE | 2020-08-27 08:59 | CT ---
EXAM: CT Abdomen Pelvis W WO con DATE: 08/27/2020 8:15 AM INDICATION: History of perirectal abscess and rectal cancer COMPARISON: CT of the abdomen and pelvis dated July 27, 2020 and July 28, 2020. FINDING: ABDOMEN: The pleural-based density overlying the right hepatic dome is stable. 1 cm hypodensity within the right hepatic lobe, recently biopsied, consistent with metastatic disease is stable. The pancreas, adrenal glands and spleen appear within normal limits. The kidneys appear within normal limits. No free fluid or enlarged lymph nodes are evident. There are mild vascular calcifications seen involving the visualized vasculature. Pelvis: Previously seen fluid and gas collection posterior to the prostate gland is largely resolved. There i s a residual 6.5 x 2.3 cm peripherally enhancing fluid like collection seen extending from the right lateral margin of the rectum to the posterior margin of the prostate gland suspicious for persi stent contained right perirectal transmural perforation. Prominent wall thickening involving the rectum consistent with the patient's known rectal cancer is stable. There is mild scattered free flui d in the pelvis. The percutaneous suprapubic bladder catheter is again noted. Osseous structures: There is scattered degenerative and osteoarthritic change. No definite destructive osteolytic or oste oblastic lesion is identified. IMPRESSION: 1. Prominent wall thickening involving the rectum consistent patient's known rectal cancer. There is a full-thickness transmural, contained perforation/fistula along the right lateral aspect of the mid to lower right rectum extending into the retrovesicular space. The larger fluid and gas collectio n seen on the prior examination consistent with perirectal abscess has largely resolved. 2. Stable suprapubic bladder catheter. 3. Stable right hepatic lobe metastatic disease.
[2020-08-27] MEDS ORDERED: Iopamidol 370 76% 100 ML VIAL ONE (13:56)
== END 2020-08-27 07:20 | disposition home or self-care (01) ==
LOC: CT 07:19
PROVIDERS: ATTEND Urology
DX: C20 Malignant neoplasm of rectum (principal); K61.1 Rectal abscess; K62.89 Other specified diseases of anus and rectum; C78.7 Secondary malignant neoplasm of liver and intrahepatic bile duct; Z90.79 Acquired absence of other genital organ(s)
CPT/HCPCS: 74178; Q9967

== ENCOUNTER 2020-09-27 12:12 | Day surgery (SDC) | payer SELFPAY ==
[~2020-09-27 12:12] MED LIST changes: +DEXTROSE 5% IVPB SCH; +FLUOROURACIL IVPB SCH; -Heparin 1,000 UNITS/ML VIAL ONE; -Iopamidol-370 76% 500 ML 1 ML ONE; +LEUCOVORIN CALCIUM IVPB SCH; +OXALIPLATIN IVPB SCH; +PALONOSETRON HCL 0.05 MG/ML 5 ML VIAL IVP SCH; +SODIUM CHLORIDE 0.9% IVPB SCH; +WATER IVPB SCH
[2020-09-27] MEDS ORDERED: Sodium Chloride 0.9% 20 ML ONE (12:17)
[2020-09-27 12:43] VITALS: BP 132/67; TEMP 97.9
== END 2020-09-27 16:46 | disposition home or self-care (01) ==
LOC: ONC/OP 12:12
PROVIDERS: ATTEND Internal Medicine Hematology & Oncology
DX: Z51.11 Encounter for antineoplastic chemotherapy (principal); C20 Malignant neoplasm of rectum
CPT/HCPCS: 96367; 96375; 96413; 96415; 96416; 96417; J0640; J1100; J2469; J7070; J9190; J9263

== ENCOUNTER 2020-10-11 10:47 | Day surgery (SDC) | payer SELFPAY ==
[~2020-10-11 10:47] MED LIST changes: +ADMIXTURE FEE CHEMO IVPB SCH; +CETUXIMAB IVPB SCH; +diphenhydrAMINE 50 MG in Sodium Chloride 0.9% 50 ML IVPB PRN; +diphenhydrAMINE 50 MG in Sodium Chloride 0.9% 50 ML IVPB SCH
[2020-10-11] MEDS ORDERED: Sodium Chloride 0.9% 20 ML ONE (11:43)
[2020-10-11 12:01] VITALS: BP 145/67; TEMP 98.1
== END 2020-10-11 17:32 | disposition home or self-care (01) ==
LOC: ONC/OP 10:47
PROVIDERS: ATTEND Internal Medicine Hematology & Oncology
DX: Z51.12 Encounter for antineoplastic immunotherapy (principal); C20 Malignant neoplasm of rectum
CPT/HCPCS: 96367; 96375; 96413; 96415; 96416; 96417; J0640; J1100; J1200; J2469; J7070; J9055; J9190; J9263

== ENCOUNTER 2020-10-25 10:23 | Day surgery (SDC) | payer SELFPAY ==
[~2020-10-25 10:23] MED LIST changes: +Leucovorin Calcium 350 MG, Leucovorin Calcium 50 MG in Dextrose 5% in Water 50 ML IVPB SCH; +Sodium Chloride 0.9% 20 ML ONE; -diphenhydrAMINE 50 MG in Sodium Chloride 0.9% 50 ML IVPB SCH
[2020-10-25 11:08] VITALS: BP 120/63; TEMP 97.9
== END 2020-10-25 17:27 | disposition home or self-care (01) ==
LOC: ONC/OP 10:23
PROVIDERS: ATTEND Internal Medicine Hematology & Oncology
DX: Z51.12 Encounter for antineoplastic immunotherapy (principal); C20 Malignant neoplasm of rectum
CPT/HCPCS: 96367; 96375; 96413; 96415; 96416; 96417; J0640; J1100; J1200; J1642; J2469; J7070; J9190; J9263

== ENCOUNTER 2020-11-12 08:40 | Day surgery (SDC) | payer SELFPAY ==
[~2020-11-12 08:40] MED LIST changes: +Ferumoxytol (ERSD) 510 MG in Sodium Chloride 0.9% 150 ML IVPB SCH; -LEUCOVORIN CALCIUM IVPB SCH; -SODIUM CHLORIDE 0.9% IVPB SCH; -Sodium Chloride 0.9% 20 ML ONE; -diphenhydrAMINE 50 MG in Sodium Chloride 0.9% 50 ML IVPB PRN; +diphenhydrAMINE 50 MG in Sodium Chloride 0.9% 50 ML IVPB SCH
[2020-11-12] MEDS ORDERED: Sodium Chloride 0.9% 20 ML ONE (09:04)
[2020-11-12 10:29] VITALS: BP 123/59; TEMP 98.2
== END 2020-11-12 15:17 | disposition home or self-care (01) ==
LOC: ONC/OP 08:40
PROVIDERS: ATTEND Internal Medicine Hematology & Oncology
DX: Z51.11 Encounter for antineoplastic chemotherapy (principal); C20 Malignant neoplasm of rectum; D50.0 Iron deficiency anemia secondary to blood loss (chronic)
CPT/HCPCS: 96367; 96375; 96413; 96415; 96416; 96417; J0640; J1100; J1200; J2469; J3490; J7070; J9190; J9263; Q0139

== ENCOUNTER 2020-11-15 13:38 | Day surgery (SDC) | payer SELFPAY ==
[~2020-11-15 13:38] MED LIST changes: -ADMIXTURE FEE CHEMO IVPB SCH; -CETUXIMAB IVPB SCH; -DEXTROSE 5% IVPB SCH; -FLUOROURACIL IVPB SCH; -Ferumoxytol (ERSD) 510 MG in Sodium Chloride 0.9% 150 ML IVPB SCH; +Ferumoxytol (NON ERSD) 510 MG in Sodium Chloride 0.9% 150 ML IVPB SCH; -Leucovorin Calcium 350 MG, Leucovorin Calcium 50 MG in Dextrose 5% in Water 50 ML IVPB SCH; -OXALIPLATIN IVPB SCH; -PALONOSETRON HCL 0.05 MG/ML 5 ML VIAL IVP SCH; -WATER IVPB SCH; -diphenhydrAMINE 50 MG in Sodium Chloride 0.9% 50 ML IVPB SCH
[2020-11-15 13:52] VITALS: BP 120/73; TEMP 98.1
[2020-11-15] MEDS ORDERED: Sodium Chloride 0.9% 20 ML ONE (14:27)
== END 2020-11-15 14:50 | disposition home or self-care (01) ==
LOC: ONC/OP 13:38
PROVIDERS: ATTEND Internal Medicine Hematology & Oncology
DX: D50.0 Iron deficiency anemia secondary to blood loss (chronic) (principal); C20 Malignant neoplasm of rectum
CPT/HCPCS: 96365; J1642; J3490; Q0138

== ENCOUNTER 2020-11-18 12:25 | Day surgery (SDC) | payer SELFPAY ==
[2020-11-18 12:46] VITALS: BP 114/62; TEMP 97.6
== END 2020-11-18 16:52 | disposition home or self-care (01) ==
LOC: ONC/OP 12:25
PROVIDERS: ATTEND Internal Medicine Hematology & Oncology
DX: D50.0 Iron deficiency anemia secondary to blood loss (chronic) (principal); C20 Malignant neoplasm of rectum
CPT/HCPCS: 96365; J3490; Q0138

== ENCOUNTER 2020-11-26 08:57 | Day surgery (SDC) | payer SELFPAY ==
[~2020-11-26 08:57] MED LIST changes: +ADMIXTURE FEE CHEMO IVPB SCH; +CETUXIMAB IVPB SCH; +DEXTROSE 5% IVPB SCH; +FLUOROURACIL IVPB SCH; -Ferumoxytol (NON ERSD) 510 MG in Sodium Chloride 0.9% 150 ML IVPB SCH; +LEUCOVORIN CALCIUM IVPB SCH; +OXALIPLATIN IVPB SCH; +PALONOSETRON HCL 0.05 MG/ML 5 ML VIAL IVP SCH; +Palonosetron HCl 0.25 MG in Sodium Chloride 0.9% 50 ML IVPB SCH; +SODIUM CHLORIDE 0.9% IVPB SCH; +WATER IVPB SCH; +diphenhydrAMINE 50 MG in Sodium Chloride 0.9% 50 ML IVPB SCH
[2020-11-26] MEDS ORDERED: Sodium Chloride 0.9% 20 ML ONE (09:03)
== END 2020-11-26 15:29 | disposition home or self-care (01) ==
LOC: ONC/OP 08:57
PROVIDERS: ATTEND Internal Medicine Hematology & Oncology
DX: Z51.11 Encounter for antineoplastic chemotherapy (principal); C20 Malignant neoplasm of rectum; D50.0 Iron deficiency anemia secondary to blood loss (chronic)
CPT/HCPCS: 96367; 96375; 96413; 96415; 96416; 96417; J0640; J1100; J1200; J2469; J7070; J9190; J9263

== ENCOUNTER 2020-12-17 09:40 | Day surgery (SDC) | payer SELFPAY ==
[~2020-12-17 09:40] MED LIST changes: -Palonosetron HCl 0.25 MG in Sodium Chloride 0.9% 50 ML IVPB SCH
[2020-12-17] MEDS ORDERED: Sodium Chloride 0.9% 20 ML ONE (10:46)
[2020-12-17 10:59] VITALS: BP 130/72
== END 2020-12-17 16:14 | disposition home or self-care (01) ==
LOC: ONC/OP 09:40
PROVIDERS: ATTEND Internal Medicine Hematology & Oncology
DX: Z51.11 Encounter for antineoplastic chemotherapy (principal); C20 Malignant neoplasm of rectum; D50.0 Iron deficiency anemia secondary to blood loss (chronic)
CPT/HCPCS: 96367; 96375; 96413; 96415; 96416; 96417; J0640; J1100; J1200; J2469; J7070; J9190; J9263

== ENCOUNTER 2020-12-21 12:29 | Outpatient (CLI) | payer OTHER ==
[~2020-12-21 12:29] MED LIST changes: -ADMIXTURE FEE CHEMO IVPB SCH; -CETUXIMAB IVPB SCH; -DEXTROSE 5% IVPB SCH; -FLUOROURACIL IVPB SCH; +Iopamidol 370 76% 100 ML VIAL ONE; -LEUCOVORIN CALCIUM IVPB SCH; -OXALIPLATIN IVPB SCH; -PALONOSETRON HCL 0.05 MG/ML 5 ML VIAL IVP SCH; -SODIUM CHLORIDE 0.9% IVPB SCH; -WATER IVPB SCH; -diphenhydrAMINE 50 MG in Sodium Chloride 0.9% 50 ML IVPB SCH
--- NOTE | 2020-12-21 14:38 | CT ---
EXAM: CT chest, abdomen, and pelvis with IV contrast: HISTORY: Malignant neoplasm of the rectum. Post chemotherapy treatment. COMPARISON: CT abdomen and pelvis on 08/27/2020 FINDINGS: CT THORAX: Lungs: Cystic bronchiectasis is seen in the right middle lobe with associated adjacent chronic lung c hanges unchanged when compared to CTA chest in 2013. Mild bronchiectasis is present in the right lower lobe but to a lesser extent. This previously mild peribronchial thickening in mild reticulonodu lar densities in the right lung base and to a lesser extent left lung base is less prominent than on prior study. No consolidation is seen. No discrete noncalcified pulmonary nodule is appreciated. C alcified granuloma is again seen in the medial right lower lobe. Pleural-based calcifications are again present at the right lung base. Large airways appear patent. Pleura: No pleural effusion. Lymph nodes: No enlarged lymph nodes are seen by CT size criteria. Mediastinum: Vascular calcifications are seen in the coronary arteries. A left internal jugular vein Mediport catheter is noted in place. Chest wall: No abnormalities CT ABDOMEN AND PELVIS: Liver: Previously seen 10 mm hypodense lesion anterior segment right hepatic lobe is no longer visual ized. No new hepatic lesions are seen. Gallbladder: Decompressed.\ Pancreas: Within normal limits. Spleen: Within normal limits. Adrenal glands: Within normal limits. Kidneys: Within normal limits. Urinary Bladder: Suprapubic catheter remains in place with decompressed urinary bladder. Reproductive organs: Prostate gland not well delineated and appears small in size. Bowel: There is an area of masslike thickening involving the rectum within irregular eccentric area o f enhancement right lateral aspect of the lower rectum related to previously seen residual collection in this region. The masslike thickening is worrisome for neoplastic process discrete direc t visualization. Loops of small bowel are normal in caliber. Left lower quadrant colostomy is now seen. Loops of small bowel are normal in caliber. Adenopathy:No lymphadenopathy within the abdomen or pelvis. Peritoneum: No free fluid or fluid collection is seen. No free intraperitoneal gas is identified. Abdominal wall: No abnormalities seen. Osseous structures: Multilevel degenerative changes in the spine. No suspicious lytic or sclerotic os seous lesion is identified. IMPRESSION: 1. There is a lobulated masslike thickening involving the proximal rectum with irregular thickening i nvolving the more distal rectum as well. There is area of eccentric enhancement right lateral aspect of the lower rectum in region of previous collection which may represent resolution of previou s area of contained perforation. There is adjacent minimal stranding present. Masslike prominence could be related to patient's known rectal mass in this region. Direct visualization would be helpful for further evaluation. 2. Left lower quadrant colostomy. 3. Previously seen right hepatic lobe lesion is no longer identified. No hepatic lesion is seen on to day's exam.
== END 2020-12-21 12:30 | disposition home or self-care (01) ==
LOC: BICCT 12:29
PROVIDERS: ATTEND Internal Medicine Hematology & Oncology
DX: C20 Malignant neoplasm of rectum (principal); D50.0 Iron deficiency anemia secondary to blood loss (chronic); K62.89 Other specified diseases of anus and rectum; Z93.3 Colostomy status
CPT/HCPCS: 71260; 74177; Q9967

== ENCOUNTER 2020-12-31 09:59 | Day surgery (SDC) | payer SELFPAY ==
[~2020-12-31 09:59] MED LIST changes: +ADMIXTURE FEE CHEMO IVPB SCH; +CETUXIMAB IVPB SCH; +DEXTROSE 5% IVPB SCH; +FLUOROURACIL IVPB SCH; -Iopamidol 370 76% 100 ML VIAL ONE; +LEUCOVORIN CALCIUM IVPB SCH; +OXALIPLATIN IVPB SCH; +PALONOSETRON HCL 0.05 MG/ML 5 ML VIAL IVP SCH; +SODIUM CHLORIDE 0.9% IVPB SCH; +WATER IVPB SCH; +diphenhydrAMINE 50 MG in Sodium Chloride 0.9% 50 ML IVPB SCH
[2020-12-31] MEDS ORDERED: Sodium Chloride 0.9% 20 ML ONE (10:09)
[2020-12-31 15:52] VITALS: BP 138/67; TEMP 98.8
[2021-01-01] MEDS ORDERED: FLU VACC QS2020-21(6MOS UP)/PF 60 MCG/0.5 ML SYRINGE IM ONE (09:00)
== END 2020-12-31 18:40 | disposition home or self-care (01) ==
LOC: ONC/OP 09:59
PROVIDERS: ATTEND Internal Medicine Hematology & Oncology
DX: Z51.11 Encounter for antineoplastic chemotherapy (principal); C20 Malignant neoplasm of rectum; D50.0 Iron deficiency anemia secondary to blood loss (chronic)
CPT/HCPCS: 96367; 96375; 96413; 96415; 96416; 96417; J0640; J1100; J1200; J2469; J7070; J9190; J9263

== ENCOUNTER → 2021-01-14 | Day surgery (SDC) | payer SELFPAY ==
[~2021-01-14] MED LIST changes: +Sodium Chloride 0.9% 20 ML ONE
[2021-01-14 16:28] VITALS: BP 124/75; TEMP 98.2
== END ==
LOC: ONC/OP 10:08
PROVIDERS: ATTEND Internal Medicine Hematology & Oncology
DX: Z51.11 Encounter for antineoplastic chemotherapy (principal); C20 Malignant neoplasm of rectum; D50.0 Iron deficiency anemia secondary to blood loss (chronic)
CPT/HCPCS: 96367; 96375; 96413; 96415; 96416; 96417; J0640; J1100; J1200; J2469; J7070; J9190; J9263

== ENCOUNTER 2021-01-28 10:03 | Day surgery (SDC) | payer SELFPAY ==
[~2021-01-28 10:03] MED LIST changes: -Sodium Chloride 0.9% 20 ML ONE
[2021-01-28] MEDS ORDERED: Sodium Chloride 0.9% 20 ML ONE ×2 (10:18→10:30)
[2021-01-28 16:41] VITALS: BP 127/69; TEMP 98
== END 2021-01-28 16:46 | disposition home or self-care (01) ==
LOC: ONC/OP 10:03
PROVIDERS: ATTEND Internal Medicine Hematology & Oncology
DX: Z51.11 Encounter for antineoplastic chemotherapy (principal); C20 Malignant neoplasm of rectum; D50.0 Iron deficiency anemia secondary to blood loss (chronic)
CPT/HCPCS: 96367; 96375; 96413; 96415; 96416; 96417; J0640; J1100; J1200; J2469; J7070; J9190; J9263

== ENCOUNTER 2021-04-16 20:49 | Emergency (ER) | payer OTHER | END 2021-04-17 01:20 | disposition home or self-care (01) | LOC: ERS 20:49 | DX: T83.038A Leakage of other urinary catheter, initial encounter (principal); F17.210 Nicotine dependence, cigarettes, uncomplicated | CPT/HCPCS: 99283 ==

== ENCOUNTER 2021-08-22 09:37 | Outpatient (CLI) | payer OTHER ==
[2021-08-22] MEDS ORDERED: Iopamidol 370 76% 100 ML VIAL ONE (13:32)
== END 2021-08-22 09:38 | disposition home or self-care (01) ==
LOC: CT 09:37
PROVIDERS: ATTEND Internal Medicine Hematology & Oncology
DX: C20 Malignant neoplasm of rectum (principal); D50.0 Iron deficiency anemia secondary to blood loss (chronic); N13.30 Unspecified hydronephrosis; N28.82 Megaloureter; K76.9 Liver disease, unspecified; J98.4 Other disorders of lung; J98.09 Other diseases of bronchus, not elsewhere classified; Z98.890 Other specified postprocedural states; Z90.49 Acquired absence of other specified parts of digestive tract; Z92.3 Personal history of irradiation
CPT/HCPCS: 71260; 74177; 82565; Q9967

== ENCOUNTER 2021-10-03 10:33 | Outpatient (CLI) | payer OTHER | END 2021-10-03 10:34 | disposition home or self-care (01) | LOC: CT 10:33 | PROVIDERS: ATTEND Internal Medicine Hematology & Oncology | DX: C20 Malignant neoplasm of rectum (principal); D50.0 Iron deficiency anemia secondary to blood loss (chronic) | CPT/HCPCS: 82565 ==

== ENCOUNTER 2021-10-12 14:28 | Outpatient (CLI) | payer OTHER | END 2021-10-12 14:29 | disposition home or self-care (01) | LOC: ULT 14:28 | PROVIDERS: ATTEND Internal Medicine Hematology & Oncology | DX: N17.9 Acute kidney failure, unspecified (principal); C20 Malignant neoplasm of rectum; N13.30 Unspecified hydronephrosis | CPT/HCPCS: 76770 ==

== ENCOUNTER 2021-12-09 08:42 | Outpatient (CLI) | payer OTHER | END 2021-12-09 08:43 | disposition home or self-care (01) | LOC: PET 08:42 | PROVIDERS: ATTEND Internal Medicine Hematology & Oncology | DX: C20 Malignant neoplasm of rectum (principal); N13.30 Unspecified hydronephrosis | CPT/HCPCS: 78815; A9552 ==

== ENCOUNTER 2022-05-09 15:55 | Outpatient (CLI) | payer OTHER ==
[2022-05-09 17:34] LABS: #Eosinphils 0.1 10x3/uL (0.0-0.5); #Monocytes 0.4 10x3/uL (0.0-1.1); #Neutrophils 4.9 10x3/uL (1.5-8.4); %Basophils 0.5 % (0.0-2.0); %Eosinophils 1.3 % (0.0-6.0); %Lymphocytes 13.1 % (18.0-47.0); %Monocytes 6.5 % (0.0-10.0); %Neutrophils 78.3 % (40.0-75.0); Hemoglobin 12.1 g/dL (13.5-17.5); Mean Corpuscular HGB CONC 32.2 g/dL (32.0-36.0); Mean Corpuscular Hemoglobin 31.1 pg (27.0-33.0); Mean Corpuscular Volume 96.7 fl (81.2-95.1); Mean Platelet Volume 9.7 fl (7.4-10.4); Platelet Count 176 10x3/uL (150-450); RBC Distribution Width 14.2 % (11.5-14.5); Red Blood Cell (RBC) Count 3.89 10x6/uL (4.32-5.72); White Blood Cell (WBC) Count 6.2 10x3/uL (3.5-10.5)
[2022-05-09 17:41] LABS: Anion Gap 13 mmol/L (10-20); BUN (Urea Nitrogen) 47 mg/dL (8.4-25.7); Calc. Creatinine Clearance 0 mL/min (70-130); Calcium 8.5 mg/dL (7.8-10.44); Carbon Dioxide 20 mmol/L (22-29); Chloride 112 mmol/L (98-107); Estimated GFR 27; Glucose 79 mg/dL (70-105); Sodium 140 mmol/L (136-145)
== END 2022-05-09 15:56 | disposition home or self-care (01) ==
LOC: LABBT 15:55
PROVIDERS: ATTEND Surgery
DX: Z01.818 Encounter for other preprocedural examination (principal)
CPT/HCPCS: 80048; 85025; 87811; 93005; 93010

== ENCOUNTER 2022-05-10 10:15 | Outpatient (CLI) | payer OTHER | END 2022-05-10 10:16 | disposition home or self-care (01) | LOC: PET 10:15 | PROVIDERS: ATTEND Internal Medicine Hematology & Oncology | DX: C20 Malignant neoplasm of rectum (principal); D50.0 Iron deficiency anemia secondary to blood loss (chronic); J47.9 Bronchiectasis, uncomplicated | CPT/HCPCS: 78815; A9552 ==

== ENCOUNTER 2022-05-12 06:20 | Day surgery (SDC) | payer OTHER ==
[2022-05-10 11:17] VITALS: BMI 31.8
[2022-05-12] MEDS ORDERED: CEFAZOLIN 2 GM VIAL ONE (07:06)
[2022-05-12] MEDS ORDERED: Acetaminophen 500 MG TAB ONE (07:06)
[2022-05-12] MEDS ORDERED: Sodium Chloride 0.9% 100 ML ONE (07:06)
[2022-05-12] MEDS ORDERED: Lidocaine 1% MPF 2 ML VIAL ONE (07:06)
[2022-05-12] MEDS ORDERED: fentaNYL Citrate/PF 100 MCG/2 ML SYRINGE ONE (07:18)
[2022-05-12] MEDS ORDERED: Bupivacaine/Epinephrine 0.25% 30 ML VIAL ONE (07:31)
[2022-05-12] MEDS ORDERED: Glycopyrrolate 0.2 MG/ML 5 ML SYRINGE ONE (08:04)
[2022-05-12] MEDS ORDERED: Dexamethasone 20 MG/5 ML VIAL ONE (08:04)
[2022-05-12] MEDS ORDERED: PROPOFOL 200 MG/20 ML VIAL ONE (08:04)
[2022-05-12] MEDS ORDERED: Lidocaine 1% PF 5 ML VIAL ONE (08:04)
[2022-05-12] MEDS ORDERED: Ondansetron PF 4 MG/2 ML Vial ONE (08:04)
[2022-05-12] MEDS ORDERED: Rocuronium Bromide 10 MG/ML (10ML VIAL) ONE (08:04)
[2022-05-12] MEDS ORDERED: Bupivacaine PF 0.5% 30 ML VIAL ONE (08:33)
[2022-05-12] MEDS ORDERED: Fentanyl 100 MCG/2 ML VIAL ONE (09:55)
== END 2022-05-12 11:58 | disposition home or self-care (01) ==
LOC: SDC 06:20
PROVIDERS: ATTEND Surgery
PROC: 0YU50JZ Supplement Right Inguinal Region with Synthetic Substitute, Open Approach (ICD-10-PCS; principal; 2022-05-12)
DX: K40.90 Unilateral inguinal hernia, without obstruction or gangrene, not specified as recurrent (principal); I10 Essential (primary) hypertension; F17.210 Nicotine dependence, cigarettes, uncomplicated; Z85.048 Personal history of other malignant neoplasm of rectum, rectosigmoid junction, and anus; Z88.8 Allergy status to other drugs, medicaments and biological substances
CPT/HCPCS: 88302; A4306; C1781; J0690; J1100; J1642; J2405; J2704; J2710; J3010; J3490; S0020

== ENCOUNTER → 2022-08-10 | Outpatient (CLI) | payer OTHER | LOC: PET 10:15 | PROVIDERS: ATTEND Internal Medicine Hematology & Oncology | DX: C20 Malignant neoplasm of rectum (principal); C78.7 Secondary malignant neoplasm of liver and intrahepatic bile duct; D50.0 Iron deficiency anemia secondary to blood loss (chronic); N28.9 Disorder of kidney and ureter, unspecified; R91.1 Solitary pulmonary nodule; N13.30 Unspecified hydronephrosis; Z98.890 Other specified postprocedural states | CPT/HCPCS: 78815; A9552 ==

== ENCOUNTER 2023-08-15 08:00 | Outpatient (CLI) | payer OTHER | END 2023-08-15 08:01 | disposition home or self-care (01) | LOC: PET 08:00 | PROVIDERS: ATTEND Internal Medicine Hematology & Oncology | DX: C20 Malignant neoplasm of rectum (principal); N13.30 Unspecified hydronephrosis; N28.89 Other specified disorders of kidney and ureter; R94.8 Abnormal results of function studies of other organs and systems | CPT/HCPCS: 78815; A9552 ==

== ENCOUNTER 2023-09-06 08:15 | Outpatient (CLI) | payer OTHER | END 2023-09-06 08:16 | disposition home or self-care (01) | LOC: SCSMRI 08:15 | PROVIDERS: ATTEND Internal Medicine Hematology & Oncology | DX: C20 Malignant neoplasm of rectum (principal); R93.2 Abnormal findings on diagnostic imaging of liver and biliary tract | CPT/HCPCS: 74183 ==